=== PATIENT | male | born 1975 | race Caucasian/White ===

== ENCOUNTER 2018-05-31 13:27 | Emergency (ER) | payer SELFPAY ==
[2018-05-31 13:27] VITALS: BP 136/76; PULSE 77; RESP 16; TEMP 36.6; O2SAT 98; BMI 21.7
--- NOTE | 2018-05-31 13:58 | ED.DCSUM_ITS ---
- ER Visit Summary Date of Service: 05/31/18 Chief Complaint: [Dental pain] History of Present Illness: The patient is a 43 M [presents the emergency department complaint dental pain that started for 5 days ago. Patient states he has a broken tooth that broke couple weeks ago. Patient denies any fever. Patient has an appointment to see a dentist in 4 days which is his day off.] Physical Examination: [HEENT-PERRLA, EOMI. Cranial nerves II through XII grossly intact. TMs clear. Mucous membranes moist. No adenopathy. Dental exam-patient has a broken tooth that is worn down to the gumline left lower premolar that is tender to palpation. No evidence of abscess. No facial cellulitis. Cardiovascular-regular rate and rhythm without murmur or ectopy Lungs-clear to auscultation, chest wall stable without crepitus or subcu emphysema Abdomen-normoactive bowel sounds, soft, nontender, no rebound or rigidity, no peritoneal signs. Extremities-intact ?4, normal range of motion, normal pulses, atraumatic] Test Results: [None indicated Emergency Department Course and Treatment: [I did perform an oars report and patient only has 4 prescriptions for narcotic pain medication in the last year.] Treatment Plan: [Patient will be started on clindamycin and [place] for pain] Disposition: [Discharged home in stable condition] Impression: [Dental pain/dental caries] This note was generated with [facility] dictation software. It may contain incorrect words, spelling, and punctuation that were not noted in review of the chart prior to signing ED Disposition - Plan for ED Patient: Chief Complaint: Dental Referrals: Gail Briones NP-C [Primary Care Provider] -
--- NOTE | 2018-05-31 13:58 | ED.DEP ---
ED Disposition - Plan for ED Patient: Chief Complaint: Dental Instructions: ED Tooth Pain Prescriptions: Hydrocodone/Acetaminophen [[place] 5-325 Tablet] 1 ea PO 4X/DAY PRN PRN 5 Days #20 tab PRN Reason: Pain Clindamycin HCl [Cleocin] 300 mg PO Q6H #40 cap Referrals: Gail Briones EDUCATIONAL PROGRAMMING DIRECTOR-C [Primary Care Provider] - Additional Instructions: see your dentist
--- NOTE | 2018-05-31 13:59 | DCINST.ED_ITS ---
ED Disposition - Plan for ED Patient: Chief Complaint: Dental Instructions: ED Tooth Pain Prescriptions: Hydrocodone/Acetaminophen [[place] 5-325 Tablet] 1 ea PO 4X/DAY PRN PRN 5 Days # 20 tab PRN Reason: Pain Clindamycin HCl [Cleocin] 300 mg PO Q6H #40 cap Referrals: Gail Briones SPECIAL INVESTIGATOR-C [Primary Care Provider] - Additional Instructions: see your dentist
== END 2018-05-31 14:21 | disposition home or self-care (01) ==
PROVIDERS: Emergency Provider Emergency Medicine; Family Provider Nurse Practitioner Primary Care; PCP Nurse Practitioner Primary Care
DX: K08.89 Other specified disorders of teeth and supporting structures (principal); K02.9 Dental caries, unspecified; Z72.0 Tobacco use
CPT/HCPCS: 99282

== ENCOUNTER 2018-06-01 10:49 | Emergency (ER) | payer SELFPAY ==
[2018-06-01 10:49] VITALS: BP 137/92; PULSE 85; RESP 14; TEMP 36.4; BMI 20.5
--- NOTE | 2018-06-01 11:17 | ED.VISSUMM ---
- ER Visit Summary Date of Service: 06/01/18 Chief Complaint: Dental pain History of Present Illness: The patient is a 43 M who was seen yesterday he developed more swelling in his left lower jaw region. He got started on clindamycin yesterday. No other symptoms. Physical Examination: He has slight swelling of his left lower jar region, no periapical abscess that is indurated or fluctuant or drainable. Emergency Department Course and Treatment: He was reassured and he will be given a note for work today per his request otherwise he will be discharged in stable condition. Discharge stable condition Impression: [Odontalgia] This note was generated with [employer] dictation software. It may contain incorrect words, spelling, and punctuation that were not noted in review of the chart prior to signing ED Disposition - Plan for ED Patient: Chief Complaint: Dental Referrals: Gail Briones, STEMHOLE BORER AND TOPPER-C [Primary Care Provider] -
[2018-06-01] MEDS: HYDROcodone Bitartrate/Apap 5/325 Tablet PO (11:23)
--- NOTE | 2018-06-01 11:23 | ED.DEP ---
ED Disposition - Plan for ED Patient: Disposition: Home or Assisted Living Chief Complaint: Dental Instructions: ED Cavity Dental Referrals: Gail Briones NP-C [Primary Care Provider] - 3-5 Days
== END 2018-06-01 11:30 | disposition home or self-care (01) ==
PROVIDERS: Emergency Provider Emergency Medicine; Family Provider Nurse Practitioner Primary Care; PCP Nurse Practitioner Primary Care
DX: K08.89 Other specified disorders of teeth and supporting structures (principal); Z72.0 Tobacco use
CPT/HCPCS: 99282

== ENCOUNTER 2018-08-24 14:01 | Emergency (ER) | payer SELFPAY ==
[2018-08-24 14:02] VITALS: BP 154/92; PULSE 84; RESP 18; TEMP 37.1; O2SAT 99; BMI 22.0
--- NOTE | 2018-08-24 14:52 | RAD_ITS ---
STUDY: X-RAY CHEST REASON FOR EXAM: Male, 43 years old. Dyspnea. Productive cough. TECHNIQUE: PA and lateral views of the chest. COMPARISON: Comparison is made with prior study dated July 18, 2013. FINDINGS: EKG electrodes are seen. Hyperinflation. The lungs are clear. There is no demonstrated pleural abnormality. Normal size heart. Normal mediastinum and francis. Normal visualized pulmonary arteries. Normal visualized aortic arch and descending thoracic aorta. Normal visualized thoracic spine. Normal visualized ribs, clavicles, and shoulders. There is no demonstrated abnormality of the visualized soft tissue structures of the upper abdomen. RAD/Chest PA and Lateral IMPRESSION: Hyperinflation. Electronically Signed: Luke Manzano MD at 15:12 EDT Tel [phone], Service support ,
--- NOTE | 2018-08-24 14:52 | EKG12_ITS ---
Test Reason : CP Blood Pressure : / mmHG Vent. Rate : 082 BPM Atrial Rate : 082 BPM P-R Int : 142 ms QRS Dur : 084 ms QT Int : 362 ms P-R-T Axes : 063 040 047 degrees QTc Int : 422 ms Normal sinus rhythm Voltage criteria for left ventricular hypertrophy Abnormal ECG Confirmed by CANDI ISRAEL ([id number]), news videotape editor GARETT LUTZ ([id number]) on 08/28/2018 8:30:03 AM Referred By: NIDHI/CARMINA Confirmed By:CANDI ISRAEL
[2018-08-24 15:01] VITALS: O2SAT 98
--- NOTE | 2018-08-24 15:48 | ED.VISSUMM ---
- ER Visit Summary Date of Service: 08/24/18 Chief Complaint: Shortness of breath and left axilla pain History of Present Illness: The patient is a 43 M who presents from work because of acute onset of left axilla pain with a pleuritic component. He states he has had pain similar but not as severe in the past. He never sought medical attention. He does report a productive cough of green colored sputum for the past 1 week. He denies fever, chills night sweats. He denies weight gain or weight loss. He does report mild nasal congestion/rhinorrhea. Otherwise HEENT review of systems is negative. He denies chest pain of any type. He does report increased shortness of breath over the past week with a productive cough and does report dyspnea exertion. He states the pain was severe at onset and he became lightheaded, his vision became tunneled and black and coworkers stated he appeared pale and he felt as if he was going to pass out. He denies leg pain, swelling discoloration. He denies history of PE or DVT. He is a smoker. Review of systems otherwise negative and please read written note Physical Examination: Vital signs are noted. HEENT exam is remarkable for mild nasal congestion otherwise normal. Heart is regular without murmur, gallop or rub. He is in no respirator distress. Wheezing is noted bilaterally with diminished breath sounds and increased x-ray phase. Abdomen is soft nontender. There is no paraspinal megaly. There is no asymmetry, swelling, discoloration, leg vein distention, palpable cords or tenderness along the distribution of the deep venous system. Neuro exam is nonfocal. Please read written note for complete detail Test Results: EKG was obtained per nurse protocol and reveals a sinus rhythm rate of 82 with LVH by voltage criteria. AR interval, Q adventism and axis are normal. There is no evidence of any ischemic changes. Two-view chest x-ray interpreted by me as hyper aeration with flattened diaphragms. Cardiac silhouette normal. Ms. Emeterio abnormal. Osseous structures are normal. Emergency Department Course and Treatment: Patient's presentation is not consistent with cardiac etiology. A d-dimer was not obtained since he is PERC negative. He was reassessed after 6 puffs of metered-dose inhaler. He is now wheeze free. Treatment Plan: Prescription for antibiotic dispense inhaler and use every 2-4 hours while awake for the next several days. Disposition: Discharged home in stable improved condition Impression: 1. Purulent bronchitis 2. Bronchospasm secondary #1 3. Tobacco use This note was generated with [employer] dictation software. It may contain incorrect words, spelling, and punctuation that were not noted in review of the chart prior to signing ED Disposition - Plan for ED Patient: Disposition: Home or Assisted Living Chief Complaint: Shortness of Breath Instructions: ED Bronchitis Asthmatic Prescriptions: Doxycycline Monohydrate 100 mg PO BID #14 cap Referrals: Gail Briones, POLICE INSPECTOR-C [Primary Care Provider] - 3-5 Days if not improving Additional Instructions: 2 puffs of inhaler every 2-4 hours while awake for the next 2 days then every 4-6 hours as needed for wheezing and/or shortness of breath.
--- NOTE | 2018-08-24 15:53 | ED.DCSUM_ITS ---
- ER Visit Summary Date of Service: 08/24/18 Chief Complaint: Shortness of breath and left axilla pain History of Present Illness: The patient is a 43 M who presents from work because of acute onset of left axilla pain with a pleuritic component. He states he has had pain similar but not as severe in the past. He never sought medical attention. He does report a productive cough of green colored sputum for the past 1 week. He denies fever, chills night sweats. He denies weight gain or weight loss. He does report mild nasal congestion/rhinorrhea. Otherwise HEENT review of systems is negative. He denies chest pain of any type. He does report increased shortness of breath over the past week with a productive cough and does report dyspnea exertion. He states the pain was severe at onset and he became lightheaded, his vision became tunneled and black and coworkers stated he appeared pale and he felt as if he was going to pass out. He denies leg pain, swelling discoloration. He denies history of PE or DVT. He is a smoker. Review of systems otherwise negative and please read written note Physical Examination: Vital signs are noted. HEENT exam is remarkable for mild nasal congestion otherwise normal. Heart is regular without murmur, gallop or rub. He is in no respirator distress. Wheezing is noted bilaterally with diminished breath sounds and increased x-ray phase. Abdomen is soft nontender. There is no paraspinal megaly. There is no asymmetry, swelling, discoloration, leg vein distention, palpable cords or tenderness along the distribution of the deep venous system. Neuro exam is nonfocal. Please read written note for complete detail Test Results: EKG was obtained per nurse protocol and reveals a sinus rhythm rate of 82 with LVH by voltage criteria. HI interval, Q amish and axis are normal. There is no evidence of any ischemic changes. Two-view chest x-ray interpreted by me as hyper aeration with flattened diaphragms. Cardiac silhouette normal. Ms. Emeterio abnormal. Osseous structures are normal. Emergency Department Course and Treatment: Patient's presentation is not consistent with cardiac etiology. A d-dimer was not obtained since he is PERC negative. He was reassessed after 6 puffs of metered-dose inhaler. He is now wheeze free. Treatment Plan: Prescription for antibiotic dispense inhaler and use every 2-4 hours while awake for the next several days. Disposition: Discharged home in stable improved condition Impression: 1. Purulent bronchitis 2. Bronchospasm secondary #1 3. Tobacco use This note was generated with [employer] dictation software. It may contain incorrect words, spelling, and punctuation that were not noted in review of the chart prior to signing ED Disposition - Plan for ED Patient: Disposition: Home or Assisted Living Chief Complaint: Shortness of Breath Instructions: ED Bronchitis Asthmatic Prescriptions: Doxycycline Monohydrate 100 mg PO BID #14 cap Referrals: Gail Briones, EBAY RESELLER-C [Primary Care Provider] - 3-5 Days if not improving Additional Instructions: 2 puffs of inhaler every 2-4 hours while awake for the next 2 days then every 4- 6 hours as needed for wheezing and/or shortness of breath.
[2018-08-24 16:11] VITALS: BP 123/78; PULSE 69; RESP 16; O2SAT 97
--- NOTE | 2018-08-24 16:11 | ED.RN ---
IV DC'ED, CATHETER INTACT, SMALL GAUZE DRESSING PLACED. DISCHARGE INSTRUCTIONS GIVEN TO AND REVIEWED WITH PATIENT, PATIENT DENIES QUESTIONS OR CONCERNS AND VOICES UNDERSTANDING OF DISCHARGE INSTRUCTIONS. PT AMBULATES OUT OF ROOM WITHOUT DIFFICULTY.
--- NOTE | 2018-08-27 11:14 | CM.ED ---
ED CALLBACK: Follow-up call placed to patient. Patient states he started taking his antibiotic, but stopped because he was having vomiting as a side effect. Patient states that he plans to contact his PCP's office for a substitute antibiotic. He states that his symptoms are about the same as the day he presented to the ED. Encouraged patient to contact PCP and importance of antibiotic. Patient states understanding and agreement with plan. Patient declines assistance and denies further questions.
== END 2018-08-24 16:12 | disposition home or self-care (01) ==
PROVIDERS: Emergency Provider Emergency Medicine; Family Provider Nurse Practitioner Primary Care; PCP Nurse Practitioner Primary Care
DX: J40 Bronchitis, not specified as acute or chronic (principal); Z72.0 Tobacco use
CPT/HCPCS: 71046; 93005; 99284; A4216

== ENCOUNTER 2019-11-02 13:49 | Emergency (ER) | payer SELFPAY ==
[2019-11-02 13:50] VITALS: BP 137/84; PULSE 70; RESP 17; TEMP 36.8; O2SAT 100; BMI 19.0
--- NOTE | 2019-11-02 14:14 | CT_ITS ---
STUDY: CT BRAIN WITHOUT CONTRAST REASON FOR EXAM: Male, 44 years old. HEADACHE X 4 DAYS. NO INJURY RADIATION DOSAGE (If Supplied By Facility): CTDIvol = ( 44.99 ) mGy, DLP = ( 745.49 ) mGycm TECHNIQUE: Transaxial CT imaging of the brain was performed without administration of intravenous contrast material. Individualized dose optimization techniques were used for this CT. COMPARISON: No relevant priors. FINDINGS: Normal soft tissue structures. Normal calvarium. Normal size ventricles and extra-axial spaces for the patient''s age. Normal white matter tracts of the cerebral hemispheres. Normal basal ganglia and thalami. Normal brainstem. Normal cerebellum. There is no intracranial hemorrhage. There are no findings of an acute ischemic infarction. Normal visualized paranasal sinuses. CT/Brain/Head without Contrast IMPRESSION: Normal unenhanced CT scan of the brain. Electronically Signed: Agustín Acosta MD ([place]) at 14:45 EST , Service support ,
[2019-11-02] MEDS: 0.9% Normal Saline 1,000 ML 999 ML IV (14:23)
[2019-11-02] MEDS: DiphenhydrAMINE 50 MG/ML Syringe 25 MG IV (14:23)
[2019-11-02] MEDS: Ketorolac 30 MG/ML Syringe IV (14:24)
[2019-11-02] MEDS: Metoclopramide 10 MG/2 ML Vial IV (14:26)
--- NOTE | 2019-11-02 15:13 | ED.VISSUMM ---
- ER Visit Summary Date of Service: 11/02/19 Chief Complaint: Headache History of Present Illness: The patient is a 44 M who presents with a headache. It started 5 days ago. He describes throbbing in the back and sides of his head. Nothing really makes it better or worse. He states he has had some intermittent nausea. No falls or trauma. He has no history of migraine headaches. He tried Tylenol and Aleve which were working but now they are not working. He denies fevers. Physical Examination: Vital signs reviewed. HEENT exam unremarkable. There is no meningismus. Heart is regular rate and rhythm without murmurs. Lungs are clear to auscultation. Abdomen is soft and nontender. Extremities reveal no edema. Skin exam normal. Neurologic exam normal. Test Results: CAT scan of the head is normal Emergency Department Course and Treatment: Patient was given Reglan Benadryl Toradol. He states that he is feeling much better. I see no acute emergent causes for this patient's headache. Patient will be discharged to take medications at home for headaches. He is going to call his doctor for follow-up Treatment Plan: [] Disposition: Discharge Impression: Headache This note was generated with [employer] dictation software. It may contain incorrect words, spelling, and punctuation that were not noted in review of the chart prior to signing ED Disposition - Plan for ED Patient: Referrals: Care Physician,No Primary [Primary Care Provider] -
--- NOTE | 2019-11-02 15:15 | ED.DEP ---
ED Disposition - Plan for ED Patient: Disposition: Home or Assisted Living Instructions: HEADACHE, Unspecified Referrals: Care Physician,No Primary [Primary Care Provider] - Elisa Howe MD [STAFF PHYSICIAN] -
[2019-11-02 15:37] VITALS: BP 118/71; PULSE 62; RESP 16; O2SAT 100
== END 2019-11-02 15:37 | disposition home or self-care (01) ==
PROVIDERS: Emergency Provider Emergency Medicine
DX: R51 Headache (principal); R11.0 Nausea; Z72.0 Tobacco use
CPT/HCPCS: 70450; 96361; 96374; 96375; 99283; J7030; A4216

== ENCOUNTER 2020-04-24 09:10 | Emergency (ER) | payer MEDICAID, SELFPAY ==
[2020-04-24 09:12] VITALS: BP 130/98; PULSE 72; RESP 15; TEMP 36.6; O2SAT 98; BMI 22.3
--- NOTE | 2020-04-24 09:39 | CT_ITS ---
STUDY: CT ABDOMEN AND PELVIS WITHOUT CONTRAST REASON FOR EXAM: Male, 45 years old. LOWER ABD PAIN, DIARRHEA, ACHES, NAUSEA X 3 WEEKS RADIATION DOSAGE (If Supplied By Facility): CTDIvol = ( 10.27 ) mGy, DLP = ( 325.92 ) mGycm TECHNIQUE: Transaxial images were obtained from the dome of the diaphragm to the symphysis pubis without oral contrast, and without intravenous contrast. Sagittal and coronal images were reconstructed. Individualized dose optimization techniques were used for this CT. COMPARISON: 02/03/2016 FINDINGS: The visualized lung bases are unremarkable. The visualized portions of the heart are within normal limits. Liver is unremarkable aside from a 7 mm cyst in the right lobe and a likely hemangioma in the left lobe measuring 2.5 cm. Normal gallbladder and extrahepatic biliary system. Normal spleen. Normal pancreas. Normal bilateral adrenal glands. Normal right kidney. Normal left kidney. There is a small hiatal hernia. Normal small intestine. There is diffuse submucosal thickening in the descending and sigmoid colon consistent with a nonspecific colitis. This is likely infectious or inflammatory. There is no significant pericolonic inflammatory stranding, evidence of abscess or perforation. The appendix is visualized and appears normal. Appendix best seen on coronal recon images 51-56. Normal abdominal aorta. Normal inferior vena cava. Normal retroperitoneum. Normal urinary bladder. Normal abdominal wall. Normal osseous structures. CT/Abdomen/Pelvis W IV Cont ONLY IMPRESSION: Diffuse submucosal thickening of the descending and sigmoid colon suggestive of colitis. No perforation or abscess. This is likely infectious or inflammatory. 7 mm cyst in the right hepatic lobe, 2.5 cm hemangioma in the left hepatic lobe, no specific follow-up is needed. Small hiatal hernia Normal appendix visualized Electronically Signed: Renato Miles MD at 11:15 EDT , Service support ,
--- NOTE | 2020-04-24 09:40 | ED.VIS.GI ---
History of Present Illness Chief Complaint: Diarrhea Informant: Patient - Abdominal Pain/Flank Pain Onset: Weeks Context: Gradual Onset Timing: Intermittent Quality: Aching Location: Diffuse Current Severity: Mild Maximum Severity: Moderate - Nausea/Vomiting/Emesis GI Symptom: Nausea. Negative for: Vomiting Onset: Weeks - Diarrhea/Melena/Hematochezia GI Symptom: Diarrhea Onset: Weeks Stool Quality: Loose, - - thin Severity: Mild Associated Symptoms: Dysuria Narrative: Patient is a 45-year-old male with history of tobacco use but no other known medical history presenting with 3 weeks of abdominal pain, diarrhea and generalized malaise. He states every morning he has been having an episode of diarrhea. He states it is thin. He denies any black or blood in his stool. He states he also wakes up with severe nausea but does not vomit. As the day progresses his symptoms improved. He also has a generalized feeling of malaise. He states 1 to 2 days a week he wakes up drenched in sweats. He is not sure if he is had any weight loss because he does not have a scale at home. He states he also has spells of lightheadedness and feeling like he might pass out every morning when he starting to get up and move around. He has had some mild dysuria but denies any other urinary symptoms. He denies any contact with anyone with similar symptoms. He denies any other complaints at this time. He states he came in because he just wanted to make sure there is nothing bigger going on that need to be addressed. Prior similar symptoms: No Recent Illness/Hospitalization: No Past Medical History - Allergies and Home Meds Allergies/Adverse Reactions: Allergies Penicillins [PCN] Allergy (Verified 11/02/19 13:50) Unknown Primary Care Physician: Jude Saini MD [STAFF PHYSICIAN] - Christophe Hunter MD [NON-STAFF] - Past Medical History: None Surgical History: no surgical history Lives: Alone Smoking Status: Current every day smoker Review of Systems General: Reports: Malaise, Sweats, - - Lightheaded. Denies: Chills, Fever Eyes: Denies: Visual changes - bilaterally, Diplopia ENT: Denies: Rhinorrhea, Sore throat Cardiovascular: Denies: Chest pain, Palpitations Respiratory: Denies: Dyspnea, Cough, Dyspnea on exertion Gastrointestinal: Reports: Abdominal pain, Nausea, Diarrhea. Denies: Vomiting, Melena, Hematochezia Genitourinary: Denies: Dysuria, Hematuria, Frequency Musculoskeletal: Denies: Back pain, Extremity Pain Skin: Denies: Rash, Wounds Neurological: Denies: Headache, Weakness, Numbness Physical Exam Vital Signs/Narrative: Vital Signs Temp Pulse Resp BP Pulse Ox 04/24/20 09:12 97.8 F 72 15 130/98 H 98 Inital Vital Signs reviewed: Yes General: Well nourished, Well developed, No Acute Distress Head: Normocephalic, Atraumatic Eyes: Perrl, EOMI ENT: Moist mucous membranes, No rhinorrhea Neck: Supple, Nontender Cardiovascular: Regular rate, Regular rhythm, No murmurs Respiratory: No distress, CTA bilaterally, Chest nontender Abdomen: Soft, Nondistended, Normal bowel sounds, Tender - Lower abdomen, diffusely, - - No pinpoint pain at McBurney's point. Negative for: Guarding, Rebound tenderness Back: Nontender, Normal Inspection Extremities: Nontender, No edema Skin: Normal color, No rash Neurological: Alert, Oriented x3, Cranial nerves II-XII grossly intact, Normal Strength, Normal Sensation Psychological: Normal affect, Normal Mood Diagnostic/Tx/Re-eval Clinical Impression(s) from Imaging Studies Abdomen/Pelvis CT 04/24/20 09:39 IMPRESSION: Diffuse submucosal thickening of the descending and sigmoid colon suggestive of colitis. No perforation or abscess. This is likely infectious or inflammatory. 7 mm cyst in the right hepatic lobe, 2.5 cm hemangioma in the left hepatic lobe, no specific follow-up is needed. Small hiatal hernia Normal appendix visualized Electronically Signed: Renato Miles MD at 11:15 EDT , Service support , Chest X-Ray 04/24/20 10:44 IMPRESSION: Normal x-ray examination of the chest. Electronically Signed: Renato Miles MD at 10:58 EDT , Service support , Laboratory Data 04/24/20 04/24/20 04/24/20 10:00 10:00 10:00 WBC 8.2 RBC 4.70 Hgb 15.2 Hct 46.1 MCV 98.1 H MCH 32.3 H MCHC 33.0 RDW Std Deviation 47.8 H RDW Coeff of Alexus 13.2 Plt Count 282 MPV 9.1 Immature Gran % (Auto) 0.200 Neut % (Auto) 62.0 Lymph % (Auto) 26.7 [place] % (Auto) 7.0 Eos % (Auto) 3.5 Baso % (Auto) 0.6 Absolute Neuts (auto) 5.1 Absolute Lymphs (auto) 2.18 Nucleated RBC % 0 Sodium 142 Potassium 4.2 Chloride 109 H Carbon Dioxide 30.0 Anion Gap 3 L BUN 8 Creatinine 0.85 Estim Creat Clear Calc 95.53 Est GFR (MDRD) Af Amer 126 Est GFR (MDRD) Non-Af 104 BUN/Creatinine Ratio 9.4 L Glucose 90 Calcium 8.8 Total Bilirubin 0.40 AST 17 ALT 24 Alkaline Phosphatase 52 Total Protein 6.8 Albumin 3.5 Globulin 3.3 Albumin/Globulin Ratio 1.1 Lipase 209 TSH 2.11 Urine Color Urine Clarity Urine pH Ur Specific [place] Urine Protein Urine Glucose (UA) Urine Ketones Urine Occult Blood Urine Nitrite Urine Bilirubin Urine Urobilinogen Ur Leukocyte Esterase Urine RBC Urine WBC Ur Squamous Epith Cells Amorphous Sediment Urine Bacteria Urine Mucus Monoscreen Negative 04/24/20 10:00 WBC RBC Hgb Hct MCV MCH MCHC RDW Std Deviation RDW Coeff of Alexus Plt Count MPV Immature Gran % (Auto) Neut % (Auto) Lymph % (Auto) [place] % (Auto) Eos % (Auto) Baso % (Auto) Absolute Neuts (auto) Absolute Lymphs (auto) Nucleated RBC % Sodium Potassium Chloride Carbon Dioxide Anion Gap BUN Creatinine Estim Creat Clear Calc Est GFR (MDRD) Af Amer Est GFR (MDRD) Non-Af BUN/Creatinine Ratio Glucose Calcium Total Bilirubin AST ALT Alkaline Phosphatase Total Protein Albumin Globulin Albumin/Globulin Ratio Lipase TSH Urine Color Yellow Urine Clarity Clear Urine pH 6.5 Ur Specific [place] 1.015 Urine Protein 15 H Urine Glucose (UA) Normal Urine Ketones Negative Urine Occult Blood 50 H Urine Nitrite Negative Urine Bilirubin 1 H Urine Urobilinogen 1 H Ur Leukocyte Esterase Negative Urine RBC 0-5 SEEN Urine WBC 0 SEEN Ur Squamous Epith Cells 0 SEEN Amorphous Sediment 1+ Urine Bacteria 1+ Urine Mucus 1+ Monoscreen - Medical Decision Making Patient is evaluated for 3 weeks of diarrhea, lower abdominal pain and nausea. He denies ever having any like this before. Denies associated fever does report night sweats. Physical exam is significant only for some very mild lower abdominal tenderness. No peritoneal signs. He is otherwise well-appearing. His vital signs are normal. Lab work including CBC and belly labs is unremarkable. Urinalysis does show some findings consistent with some inflammation. X-ray of the chest does not show any acute process. CT of the abdomen and pelvis does show diffuse submucosal thickening of the descending and sigmoid colon consistent with colitis. No signs of perforation or abscess. This does match patient's clinical picture. Patient was started on broad-spectrum antibiotics, Cipro and Flagyl. He is given first dose in the emergency room. He denies any family history of Crohn's disease or ulcerative colitis. Patient is also older than I would expect to be a new presentation of inflammatory bowel disease. He is given surgery for follow-up. Patient is counseled on the importance of follow-up. He is referred to primary care doctor as he does not have one either. Patient is counseled on signs and symptoms requiring return to the emergency room. Patient verbalizes agreement and understand this plan. Patient discharged home in stable and improved condition. ED Disposition - Plan for ED Patient: Disposition: Home or Assisted Living Diagnosis: Colitis, Diarrhea Instructions: ED Diarrhea Bacterial Prescriptions: Ciprofloxacin [Cipro] 500 mg PO BID #14 tab Prescription Printed metroNIDAZOLE [Flagyl] 500 mg PO Q8H #21 tab Prescription Printed Ondansetron [Zofran Odt] 4 mg PO Q8H PRN PRN #10 tab PRN Reason: Nausea Prescription Printed Referrals: Jude Saini MD [STAFF PHYSICIAN] - Christophe Hunter MD [NON-STAFF] - Additional Instructions: You were started on antibiotics to treat likely infection of your colon which is causing her symptoms. Please follow-up with surgery, Dr. Saini, in 1 week for further evaluation recommendations. Please return the emergency room if you have any worsening symptoms. You have also been given referral to Dr. Hunter, primary care.
[2020-04-24 09:50] VITALS: BP 130/98; PULSE 72; RESP 15; TEMP 36.6; O2SAT 98
[2020-04-24] MEDS: 0.9% Normal Saline 1,000 ML 1000 ML IV (09:57)
[2020-04-24 10:07] LABS: Squamous Epithelial Cells - UA 0 SEEN /hpf (0-5); White Blood Cells 0 SEEN /hpf (0-5)
[2020-04-24 10:09] LABS: Color, Urine Yellow (Yellow); Glucose, Dipstick Normal (Normal); Ketone-Dipstick Negative (Negative); Leukocyte Esterase-Dipstick Negative /ul (Negative); Nitrite-Dipstick Negative (Negative); Occult Blood-Urine 50 /ul (Negative); Protein-Dipstick 15 mg/dl (Negative); Specific Gravity, Urine 1.015 (1.002-1.030); Urine Clarity Clear (Clear); Urine Urobilinogen 1 mg/dl (Normal); Urine pH 6.5 (5.0 - 8.0)
[2020-04-24 10:10] LABS: Absolute Lymphocyte Count 2.18 X10^3/uL (0.83-4.51); Absolute Neutrophil Count 5.1 X10^3/uL (2.0-7.7); Basophil# 0.05 X10^3/uL; Basophil% 0.6 % (0-1); Eosinophil# 0.29 X10^3/uL; Eosinophils% 3.5 % (0-5); Hematocrit 46.1 % (40-54); Hemoglobin 15.2 g/dL (13.0-16.5); Lymphocyte # 2.18 X10^3/ul (4.0); Lymphocyte % 26.7 % (19-41); Mean Corpuscular Hgb 32.3 pg (27.0-32.0); Mean Corpuscular Volume 98.1 fL (80-94); Mean Platelet Vol. 9.1 fl (6.2-12.0); Monocyte# 0.57 X10^3/uL; NRBC Flagged by Analyzer 0 % (0-5); Neutrophil # 5.07 X10^3/uL (2.7-7.7); Platelet Count 282 K/mm3 (150-450); RBC Distribution Width CV 13.2 % (11.6-14.6); RBC Distribution Width SD 47.8 fl (35.1-43.9); White Blood Count 8.2 K/mm3 (4.4-11.0)
[2020-04-24 10:12] LABS: Urine Bilirubin Dipstick 1 mg/dL (Negative)
[2020-04-24 10:16] LABS: Amorphous Sediment 1+; Bacteria 1+ /hpf (None Seen); Mucous, Urine 1+ /hpf (<or=2+); Red Blood Cells-Urine 0-5 SEEN /hpf (0-5)
[2020-04-24 10:29] LABS: Internal QC Validated? YES +Cl - CLEAR BKGD; Monotest Negative (Negative)
[2020-04-24 10:32] LABS: ALB/GLOB Ratio 1.1 RATIO (0.9-2.4); AST(SGOT) 17 U/L (15-37); Alanine Aminotransfer ALT/SGPT 24 U/L (16-61); Albumin, Serum 3.5 g/dL (3.2-5.0); Alkaline Phosphatase 52 U/L (45-117); Anion Gap 3 (5-15); BUN 8 mg/dL (7-18); BUN/Creat Ratio 9.4 RATIO (10-20); Calcium,Total 8.8 mg/dL (8.5-10.1); Chloride 109 mmol/L (98-107); Creatinine, Serum 0.85 mg/dL (0.70-1.30); EST Glomerular Filtration Rate 104 mL/min (>60); Est Glom Filt Rate - Afr Amer 126 mL/min (>60); Estimated Creatinine Clearance 95.53 ml/min; Globulin 3.3 g/dL (2.2-4.2); Glucose 90 mg/dL (74-106); Lipase 209 U/L (73-393); Potassium 4.2 mmol/L (3.5-5.1); Protein, Total 6.8 g/dL (6.4-8.2); Sodium Level 142 mmol/L (136-145); Thyroid Stim Hormone (TSH) 2.11 uIU/mL (0.358-3.74)
[2020-04-24 10:36] VITALS: BP 127/75; PULSE 73; RESP 16; TEMP 36.6; O2SAT 98
--- NOTE | 2020-04-24 10:44 | RAD_ITS ---
STUDY: X-RAY CHEST REASON FOR EXAM: Male, 45 years old. DIARRHEA X 3 WEEKS TECHNIQUE: Single AP portable view of the chest. COMPARISON: 08/24/2018 FINDINGS: The lungs are clear and expanded. There is no demonstrated pleural abnormality. Normal size heart. Normal mediastinum and francis. Normal visualized pulmonary arteries. Normal visualized aortic arch and descending thoracic aorta. Normal visualized thoracic spine. Normal visualized ribs, clavicles, and shoulders. There is no demonstrated abnormality of the visualized soft tissue structures of the upper abdomen. RAD/Chest 1 View (Portable) IMPRESSION: Normal x-ray examination of the chest. Electronically Signed: Renato Miles MD at 10:58 EDT , Service support ,
[2020-04-24 11:09] VITALS: BP 127/75; PULSE 73; RESP 16; TEMP 36.6; O2SAT 98
[2020-04-24 11:34] VITALS: BP 124/78; PULSE 59; RESP 16; O2SAT 99
[2020-04-24] MEDS: Ciprofloxacin 250 MG Tablet 500 MG PO (12:45)
[2020-04-24] MEDS: metroNIDAZOLE 500 MG Tablet PO (12:45)
[2020-04-24 12:46] VITALS: BP 120/76; PULSE 61; RESP 16; TEMP 36.6; O2SAT 98
== END 2020-04-24 12:53 | disposition home or self-care (01) ==
PROVIDERS: Emergency Provider Emergency Medicine
DX: K52.9 Noninfective gastroenteritis and colitis, unspecified (principal); K44.9 Diaphragmatic hernia without obstruction or gangrene; K76.89 Other specified diseases of liver; F17.200 Nicotine dependence, unspecified, uncomplicated; Z88.0 Allergy status to penicillin
CPT/HCPCS: 71045; 74177; 80053; 81001; 83690; 84443; 85025; 86308; 96360; 99284; J7030; Q9967

== ENCOUNTER 2020-05-06 11:57 | Day surgery (SDC) | payer MEDICAID, SELFPAY ==
[2020-05-05 14:17] VITALS: BMI 22.3
[2020-05-06] VITALS (7 sets, daily range): BP systolic 108–123; BP diastolic 69–88; PULSE 65–93; RESP 16–20; TEMP 36.4–37.2; O2SAT 92–98; BMI 21.2
[2020-05-06] MEDS: Lactated Ringers 1,000 ML 100 ML IV (12:29)
--- NOTE | 2020-05-06 12:42 | PCM.HP.BLA ---
History and Physical Date of Admission: 05/06/20 [facility] [address] [place] [address] OFFICE VISIT Date of Service: 05/05/20 MR#: [id number] Acct: [id number] Name: JAYNE SANCHEZ Rep #: [id number] : 1975 Provider: Dr. Jude Saini MD Age/Sex: 45/M Location: [facility] Status: Signed Intake Vital Signs 05/05/20 Height 5 ft 5 in 05/05/20 Weight: 131 lb 05/05/20 BMI 21.8 05/05/20 BP 164/91 H 05/05/20 Blood Pressure Location Rt brachial 05/05/20 Position Sitting 05/05/20 Respiration 18 05/05/20 Pulse 66 05/05/20 Pulse Source Monitor 05/05/20 Temp 98.6 F 05/05/20 Temp Source Temporal 05/05/20 Pulse Oximetry (%) 98 05/05/20 Oxygen Delivery Method room air Intake Visit Reasons: F/U [facility] ER 04/24,COLITIS/ DIARRHEA Chief Complaint: abdominal pain/nausea/diarrhea 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 Is patient in pain?: Yes Allergies Penicillins [PCN] Allergy (Verified 05/05/20 14:30) Unknown Medications ciprofloxacin HCl 500 mg tablet 500 mg PO BID 14 Days #28 tab 05/05/20 [Rx Confirmed 05/05/20] metronidazole 500 mg tablet 500 mg PO TID 14 Days #42 tab 05/05/20 [Rx Confirmed 05/05/20] [facility] Medical History History of drug abuse (Chronic) Tobacco user (Chronic) Abdominal pain (Acute) Acid reflux (Acute) Diarrhea (Acute) History of back problems (Acute) Malaise and fatigue (Acute) Nausea (Acute) Weight loss (Acute) Surgical History No history of previous surgery (Acute) Social History (Updated 05/05/20 @ 16:[address] Jude Saini MD) Smoking Status: Current every day smoker alcohol intake: current alcohol intake frequency: a few times a month substance use type: does not use HPI HPI HPI: JAYNE SANCHEZ, is a 45 M who presents to the office today for HPI HPI Surgical H&P: Yes HPI: JAYNE SANCHEZ, is a 45 M who presents to the office today for Evaluation for endoscopy. Patient was recently at [facility]'s emergency department on 04/24/2020. He presented with 3 weeks of abdominal pain diarrhea and generalized malaise. He states that every morning he was having thin runny diarrhea. He did not notice any blood in his stool usually he wakes up severely nauseated every morning but does not vomit. Several days he would wake up drenched in sweat. He states that he is not sure if he had any weight loss but his pants do fit looser than normal. In addition he was having spells of lightheadedness. He denies any contact with anyone with similar symptoms. He has had no complaints of cough his work-up in the emergency department included a CAT scan. The CT of the abdomen and pelvis showed diffuse some mucosal thickening of the descending and sigmoid colon consistent with colitis. There is no signs of perforation or abscess. He was started on broad-spectrum antibiotics (Cipro and Flagyl). He has had a week of this says his stools are more like baby poop now he is not having any fevers or chills. Patient has no family history of ulcerative colitis Crohn's colitis or any other intestinal problems. ROS General General: Yes weight change and fatigue; no appetite, colon cancer, breast cancer or weakness HEENT HEENT: No difficulty swallowing, eye injury, eye surgery, swollen glands or hoarseness Endo Endocrine: No thyroid disease, diabetes mellitus, thyroid cancer, Hair loss, heat intolerance or cold intolerance Skin Skin: No rash or changing moles Breast Breast: No left breast lump, right breast lump, nipple discharge, breast pain, abnormal mammogram, abnormal US or breast enlargement Musc Musculoskeletal: Yes back problems; no arthritis, rheumatoid arthritis, gout or joint pain Cardio Cardiovascular: Yes murmur; no pacemaker, heart disease, atrial fibrillation, high blood pressure, heart attack, heart stent, palpitations, shortness of breat with exertion or chest pain Psych Psychiatric: No depression, anxiety or hearing voices Resp Respiratory: No shortness of breath, No sleep apnea, No cough, No COPD, No asthma, No emphysema, No wheezing Gastro Gastrointestinal: Yes abdominal pain, Yes nausea or vomiting, Yes diarrhea, No constipation, No blood in stool, Yes acid reflux, No hemorrhoids, No ulcers, No gallbladder problem, Yes black,tarry stools Vern Hematologic: No blood thinners, No blood disorders, No bleeding, No anemia, No blood clots Neuro Neurologic: No system reviewed and no additional complaints, except as docu, No as per HPI, No abnormal walking, No abnormal hearing, No abnormal movements, No abnormal speech, No behavioral changes, No burning sensations, No confusion, No seizure-like activity, No unsteadiness, No dizziness, No localized weakness, No frequent falls, No headache(s), No lack of coordination, No loss of vision, No memory loss, No numbness, No other visual disturbances, No radiating pain, No restless legs, No sensory deficit, No fainting, No tingling, No tremor(s), No weakness, No other Exam Const General: no acute distress, well developed, well hydrated Orientation: oriented to person, oriented to place, oriented to time [facility] Head: normocephalic, atraumatic Ears: external ears normal Mouth: moist mucous membranes Eyes Sclera: sclerae normal Pupils: normal by confrontation Neck Neck: no lymphadenopathy noted Neck mass: No Thyroid: thyroid normal, symmetrical Chest Chest palpation & inspection: normal inspection of the chest Breast Palpation: No nipple discharge Resp Effort & Inspection: normal respiratory effort Auscultation: clear to auscultation bilaterally Percussion: percussion normal Cardio Rate: regular rate Rhythm: regular rhythm Heart Sounds: murmur GI Palpation: soft, no hepatosplenomegaly, no masses, nontender Rectal Exam: other Other: Rectal exam deferred. Extrem General: normal to inspection, no clubbing, cyanosis or edema Assessment & Plan Problems 1. Colitis K52.9 Plan I have discussed the above with the patient. I have offered the patient colonoscopy for evaluation. I have explained the risks/benefits of the procedure and described the procedure. I have discussed the risks with the patient, including but not limited to: infection, bleeding, perforation of the GI tract requiring emergency surgery, inability to complete the procedure, injury to any internal organs, complications of anesthesia, etc. - the patient understands and agrees to proceed. I have answered all the patient's questions to the patient's satisfaction and the patient has no further questions. The patient has been given instructions for the colon cleansing preparation. If his endoscopy is unrevealing. Then we will obtain stool cultures. However if it does show signs of significant inflammation we will probably start him on Asacol. Orders Orders: Colonoscopy Today Dr. Jude Saini MD Medications New: metronidazole 500 mg PO TID 14 days 42 tabs 0RF Ginger Fox PA-C ciprofloxacin HCl 500 mg PO BID 14 days 28 tabs 0RF Ginger Fox PA-C Discontinued: ondansetron Discontinued Reason: Order Completed 4 mg PO Q8H PRN PRN 10 tabs Nausea Coding Level of Care Code Off vis,new,level 4 Diagnoses Colitis K52.9 COVID (Procedure Consent) Procedure Criteria Procedure Criteria: Yes Elective The surgeon/proceduralist and patient have discussed in detail the risk of exposure to and/or potential harm posed by the COVID-19 virus with having a surgery/procedure at this time versus the risk of? delaying the surgery/procedure. It is not possible to know either the risk of delaying the surgery or procedure or chance of getting an infection with perfect accuracy, but a joint decision was made between the patient and the surgeon/proceduralist ?to proceed at this time with the scheduled surgery/procedure as indicated on the consent form. 05/05/20 3708 <Electronically signed by Jude Saini MD> Date Jude Saini MD Cosigner Signature: Date (if applicable) CC: Dr. Elisa Howe MD; Dr. China Chery, DO ~ I have re-examined the patient. There are no clinical changes since date of exam.
--- NOTE | 2020-05-06 13:30 | COLBX_PTH ---
PATIENT: JAYNE SANCHEZ LOC: EN U#:[id number] AGE/SX: 45/M ROOM: RE05/06/[address]: Dr. Jude Saini MD : 1975 BED: DIS: 05/06/2020 SPEC #: [id number] RECD: 05/06/20 15:16 STATUS: LEOPOLDO MORENO #: [id number] SUSHIL: 05/06/20 13:[address]: Jude Saini DEPT: SURGICAL PATHOLOGY RECD BY: Marivel Ribeiro ENTERED: 05/07/20 09:32 SP TYPE: COLON BX QUINTIN DR: Dr. Elisa Howe MD Tissues: A - Transverse colon B - Sigmoid colon biopsy Procedures: Surgery Specimen Level IV HEADER OPERATION: Colonoscopy (MAC) PRE-OP DIAGNOSIS: Colitis TISSUE SUBMITTED: A - Transverse colon polyp biopsy, B - Sigmoid colon biopsy MICROSCOPIC DIAGNOSIS A. Transverse colon polyp, biopsy: Tubular adenoma. B. Sigmoid colon, biopsy: Fragments of colonic mucosa, no pathologic diagnosis. RANDY:clara 05/08/20 MICROSCOPIC DESCRIPTION Slides are reviewed. GROSS DESCRIPTION A - Received in fixative is one container labeled with the patient's name and designated transverse colon polyp biopsy. The specimen consists of two irregular fragments of light guerrero soft tissue that in aggregate measure 0.5 x 0.4 x 0.1 cm. The specimen is totally submitted in one cassette. B - Received in fixative is one container labeled with the patient's name and designated sigmoid colon biopsy. The specimen consists of multiple irregular fragments of light guerrero soft tissue that in aggregate measure 1 x 1 x 0.1 cm. The specimen is totally submitted in one cassette. / RANDY:clara 05/07/20 TC:5 CPT: 60210 x2
--- NOTE | 2020-05-06 13:54 | OP.COLON_ITS ---
Patient Name: Luis Felipe Driver Procedure Date: 05/06/2020 1:22 PM Date of : 1975 Age: 45 Procedure: Colonoscopy Indications: Left-sided chronic ulcerative colitis Providers: Jude Saini MD Medicines: See the Anesthesia note for documentation of the administered medications Patient Profile: This is a 45 year old male. Refer to note in patient chart for documentation of history and physical. Last Colonoscopy: none. The patient's first colonoscopy is today. Complications: No immediate complications. Procedure: Pre-Anesthesia Assessment: - Prior to the procedure, a History and Physical was performed, and patient medications and allergies were reviewed. The patient's tolerance of previous anesthesia was also reviewed. The risks and benefits of the procedure and the sedation options and risks were discussed with the patient. All questions were answered, and informed consent was obtained. Prior Anticoagulants: The patient has taken no previous anticoagulant or antiplatelet agents. ASA Grade Assessment: II - A patient with mild systemic disease. After reviewing the risks and benefits, the patient was deemed in satisfactory condition to undergo the procedure. After I obtained informed consent, the scope was passed under direct vision. Throughout the procedure, the patient's blood pressure, pulse, and oxygen saturations were monitored continuously. The adult colonoscope was introduced through the anus and advanced to the cecum, identified by appendiceal orifice and ileocecal valve. The colonoscopy was performed without difficulty. The patient tolerated the procedure well. The quality of the bowel preparation was good. Scope In: 1:31:49 PM Scope Withdrawal Time 0 hours 11 minutes 24 seconds Scope Out: 1:47:04 PM Total Procedure Duration Time 0 hours 15 minutes 15 seconds Findings: A diffuse area of mildly congested and inflamed mucosa was found in the sigmoid colon. Biopsies were taken with a cold forceps for histology. The findings of the minimum congestion in the sigmoid colon do not look nearly as bad as the CT findings from the last week. I believe this is more likely resolving colitis. A 5 mm polyp was found in the transverse colon. The polyp was sessile. The polyp was removed with a jumbo cold forceps. Resection and retrieval were complete. The exam was otherwise without abnormality. Impression: - Congested and inflamed mucosa in the sigmoid colon. Biopsied. - One 5 mm polyp in the transverse colon, removed with a jumbo cold forceps. Resected and retrieved. - The examination was otherwise normal. Recommendation: - Discharge patient to home. - Resume previous diet. - Continue present medications. - Await pathology results. - Repeat colonoscopy (date not yet determined) for surveillance based on pathology results. - Return to my office in 2 weeks. Procedure Code(s): --- Professional --- 22031, Colonoscopy, flexible; with biopsy, single or multiple Diagnosis Code(s): --- Professional --- K63.89, Other specified diseases of intestine K52.9, Noninfective gastroenteritis and colitis, unspecified D12.3, Benign neoplasm of transverse colon (hepatic flexure or splenic flexure) K51.50, Left sided colitis without complications CPT copyright 2017 [employer]. All rights reserved. The codes documented in this report are preliminary and upon finance analyst review may be revised to meet current compliance requirements. MD Jude Castle MD 05/06/2020 1:53:46 PM This report has been signed electronically. Number of Addenda: 0 Note Initiated On: 05/06/2020 1:22 PM
--- NOTE | 2020-05-06 13:54 | OP.CCLET_ITS ---
05/06/2020 Elisa Howe [address] [place] [address] Re : Colonoscopy procedure for [facility] Dear Dr. Howe This procedure was performed on Wednesday, May 06, 2020. My impressions and recommendations are as follows: Impressions : - Congested and inflamed mucosa in the sigmoid colon. Biopsied. - One 5 mm polyp in the transverse colon, removed with a jumbo cold forceps. Resected and retrieved. - The examination was otherwise normal. Recommendations : - Discharge patient to home. - Resume previous diet. - Continue present medications. - Await pathology results. - Repeat colonoscopy (date not yet determined) for surveillance based on pathology results. - Return to my office in 2 weeks. My findings are described in the full procedure note, which is enclosed. If I can be of further assistance, please feel free to contact me at Doctor phone number(s): , Fax: [phone], Work: . Sincerely, MD Jude Castle MD 05/06/2020 1:53:46 PM This report has been signed electronically.
== END 2020-05-06 14:40 | disposition home or self-care (01) ==
LOC: EN 12:01 → AC 12:02
PROVIDERS: Anesthesiology; PCP Family Medicine; Referring Provider Family Medicine; Visit Provider Surgery
PROC: 0DJD8ZZ Inspection of Lower Intestinal Tract, Via Natural or Artificial Opening Endoscopic (ICD-10-PCS; CPT 45378; principal; 2020-05-06 13:25)
DX: D12.3 Benign neoplasm of transverse colon (principal); K63.89 Other specified diseases of intestine; K52.9 Noninfective gastroenteritis and colitis, unspecified; K51.50 Left sided colitis without complications; F17.200 Nicotine dependence, unspecified, uncomplicated; Z79.899 Other long term (current) drug therapy; Z88.0 Allergy status to penicillin; K21.9 Gastro-esophageal reflux disease without esophagitis; Z11.59 Encounter for screening for other viral diseases
CPT/HCPCS: 45380; 87635; 88305; C9803; G2023; J7120; J1610; J2405; U0003

== ENCOUNTER → 2020-05-13 12:24 | Outpatient (CLI) | payer MEDICAID, SELFPAY ==
[2020-05-06 12:22] VITALS: BMI 21.2
== END ==
PROVIDERS: PCP Family Medicine; Referring Provider Surgery; Visit Provider Surgery
DX: R19.7 Diarrhea, unspecified (principal)
CPT/HCPCS: 83630; 87177; 87209; 87493; 87506

== ENCOUNTER → 2020-05-14 09:47 | Outpatient (CLI) | payer MEDICAID, SELFPAY ==
[2020-05-06 12:22] VITALS: BMI 21.2
[2020-05-20 03:50] LABS: Fats, Neutral Normal (.); Fats, Total Normal (.)
== END ==
PROVIDERS: Surgery; PCP Family Medicine; Referring Provider Family Medicine; Visit Provider Family Medicine
DX: R19.7 Diarrhea, unspecified (principal); R10.9 Unspecified abdominal pain
CPT/HCPCS: 36415; 82274; 82705

== ENCOUNTER → 2020-05-20 12:03 | Outpatient (CLI) | payer MEDICAID, SELFPAY ==
[2020-05-06 12:22] VITALS: BMI 21.2
[2020-05-27 13:16] LABS: 5-HIAA, 24UR 2.6 mg/24 hr (0.0-14.9); 5-HIAA, UR 2.9 mg/L (Undefined)
== END ==
PROVIDERS: PCP Family Medicine; Referring Provider Surgery; Visit Provider Surgery
DX: R19.7 Diarrhea, unspecified (principal); R10.9 Unspecified abdominal pain
CPT/HCPCS: 81050; 83497

== ENCOUNTER 2020-05-26 17:51 | Emergency (ER) | payer MEDICAID, SELFPAY ==
[2020-05-21 13:16] VITALS: BMI 21.2
[2020-05-26 17:52] VITALS: BP 103/70; PULSE 87; RESP 16; TEMP 36.5; O2SAT 97; BMI 21.6
[2020-05-26 18:11] LABS: Absolute Lymphocyte Count 0.61 X10^3/uL (0.83-4.51); Absolute Neutrophil Count 8.8 X10^3/uL (2.0-7.7); Basophil# 0.03 X10^3/uL; Basophil% 0.3 % (0-1); Lymphocyte # 0.61 X10^3/ul (4.0); Lymphocyte % 6.2 % (19-41); Mean Corp Hgb Conc 34.1 g/dL (32-36); Mean Corpuscular Hgb 32.5 pg (27.0-32.0); Mean Corpuscular Volume 95.2 fL (80-94); Mean Platelet Vol. 9.2 fl (6.2-12.0); Monocyte# 0.29 X10^3/uL; NRBC Flagged by Analyzer 0 % (0-5); Neutrophil # 8.81 X10^3/uL (2.7-7.7); Neutrophil % 90.2 % (47-70); Platelet Count 301 K/mm3 (150-450); RBC Distribution Width CV 13.1 % (11.6-14.6); Red Blood Count 4.62 M/mm3 (4.6-6.2); White Blood Count 9.8 K/mm3 (4.4-11.0)
[2020-05-26 18:22] LABS: Anion Gap 5 (5-15); BUN 12 mg/dL (7-18); BUN/Creat Ratio 12.7 RATIO (10-20); Chloride 109 mmol/L (98-107); Creatinine, Serum 0.94 mg/dL (0.70-1.30); EST Glomerular Filtration Rate 92 mL/min (>60); Est Glom Filt Rate - Afr Amer 112 mL/min (>60); Estimated Creatinine Clearance 83.64 ml/min; Glucose 117 mg/dL (74-106); Potassium 4.5 mmol/L (3.5-5.1); Sodium Level 140 mmol/L (136-145)
[2020-05-26 18:53] VITALS: BP 112/71; PULSE 64; RESP 15; O2SAT 98
[2020-05-26] MEDS: Ondansetron 4 MG/2 ML Vial IV (19:40)
[2020-05-26] MEDS: Morphine 4 MG/ML Syringe IV (19:41)
[2020-05-26] MEDS: 0.9% Normal Saline 1,000 ML 1000 ML IV (19:42)
[2020-05-26 20:06] VITALS: BP 113/69; PULSE 57; RESP 16; O2SAT 96
[2020-05-26 20:09] LABS: AST(SGOT) 16 U/L (15-37); Alanine Aminotransfer ALT/SGPT 25 U/L (16-61); Albumin, Serum 3.8 g/dL (3.2-5.0); Alkaline Phosphatase 56 U/L (45-117); Bilirubin, Direct 0.22 mg/dL (0.00-0.30); Globulin 3.6 g/dL (2.2-4.2); Lipase 71 U/L (73-393); Protein, Total 7.4 g/dL (6.4-8.2)
[2020-05-26 21:07] LABS: Bacteria 0 SEEN /hpf (None Seen); Squamous Epithelial Cells - UA 0 SEEN /hpf (0-5)
[2020-05-26 21:09] LABS: Color, Urine Yellow (Yellow); Glucose, Dipstick Normal (Normal); Leukocyte Esterase-Dipstick 25 /ul (Negative); Nitrite-Dipstick Negative (Negative); Occult Blood-Urine 50 /ul (Negative); Protein-Dipstick 15 mg/dl (Negative); Urine Bilirubin Dipstick Negative (Negative); Urine Clarity Clear (Clear); Urine Urobilinogen Normal (Normal)
[2020-05-26 21:16] LABS: Ketone-Dipstick 150 mg/dl (Negative)
[2020-05-26 21:21] LABS: Mucous, Urine 2+ /hpf (<or=2+); Red Blood Cells-Urine 5-10 SEEN /hpf (0-5); White Blood Cells 0-5 SEEN /hpf (0-5)
--- NOTE | 2020-05-26 21:29 | ED.VISSUMM ---
- ER Visit Summary Date of Service: 05/26/20 Chief Complaint: Abdominal pain, nausea, vomiting, and diarrhea History of Present Illness: The patient is a 45 M presents with abdominal pain, nausea, vomiting, and diarrhea that began today. Patient describes his pain is sharp. Patient states the pain is over the epigastric area. Patient states the pain improves when he takes a shower. Patient states nothing makes the pain worse. Patient admits to some nausea and vomiting. Patient denies any hematemesis or coffee-ground emesis. Patient admits to some diarrhea but denies any melena or hematochezia. Patient denies any dysuria or hematuria. Patient states he has been following with Dr. Saini for this. Physical Examination: Vital signs are stable. Patient is afebrile. Patient is in no acute distress. Oral mucosa is pink and moist. Neck is supple. Trachea is midline. There is no JVD. Heart was regular rate and rhythm. Lungs are clear and equal bilaterally. Abdomen is soft. Bowel sounds are normal. There is some mild epigastric tenderness. There is no rebound or guarding noted. Cranial nerves II through XII are intact. There are no focal motor or sensory deficits noted. Extremities are intact. There is no calf tenderness or edema. Test Results: CBC and comprehensive metabolic profile were obtained and were within normal limits. Urinalysis showed leukocyte esterase of 25, occult blood of 50, and ketones of 150. There were 5-10 red blood cells. There are no white blood cells noted. Emergency Department Course and Treatment: Patient was given IV fluids, morphine, and Zofran. Patient was feeling better on reevaluation. Patient was instructed to follow-up with his primary care physician in 5 to 7 days. Patient was also instructed to follow-up with Dr. Saini as scheduled. Patient understood and was agreeable with the plan. All questions were answered. Disposition: Discharge home Impression: Nausea, vomiting, diarrhea This note was generated with [employer] dictation software. It may contain incorrect words, spelling, and punctuation that were not noted in review of the chart prior to signing ED Disposition - Plan for ED Patient: Disposition: Home or Assisted Living Diagnosis: Nausea vomiting and diarrhea Instructions: ED Vomiting and Diarrhea Nonspecific Adult Referrals: Jude Saini MD [STAFF PHYSICIAN] - 5-7 Days
[2020-05-26 21:57] VITALS: BP 100/70; PULSE 71; RESP 17; O2SAT 98
== END 2020-05-26 21:59 | disposition home or self-care (01) ==
PROVIDERS: Emergency Provider Emergency Medicine
DX: R11.2 Nausea with vomiting, unspecified (principal); R19.7 Diarrhea, unspecified; R10.9 Unspecified abdominal pain; J34.89 Other specified disorders of nose and nasal sinuses; F17.210 Nicotine dependence, cigarettes, uncomplicated
CPT/HCPCS: 80048; 80076; 81001; 83690; 85025; 96361; 96374; 96375; 99283; J7030; A4216; J2405

== ENCOUNTER 2020-08-14 18:18 | Emergency (ER) | payer MEDICAID, SELFPAY ==
[2020-08-14 18:19] VITALS: BP 134/78; PULSE 78; RESP 16; TEMP 36.8; O2SAT 99; BMI 20.7
--- NOTE | 2020-08-14 19:49 | ED.DCSUM_ITS ---
- ER Visit Summary Date of Service: 08/14/20 Chief Complaint: Dental pain History of Present Illness: The patient is a 45 M presenting with dental pain. Patient states this started today. He states he fractured his tooth awhile ago. Today he woke up with increasing swelling left lower jaw. He has tried ibuprofen at home. Denies fever. He is unable to see his dentist until Monday. Physical Examination: Vitals are stable. Patient is afebrile. Alert no acute distress. HEENT exam widespread dental decay. No areas of fluctuance. No sublingual edema. No significant mandible swelling. Neck is supple. Lungs are clear and equal bilaterally. Heart is regular rate and rhythm. Extremities are unremarkable. Skin is warm and dry. Remainder of exam is unremarkable. Emergency Department Course and Treatment: Patient was given [place] x1. He is given prescription for Naprosyn and clindamycin. Advised to follow-up with dentist. Advised return to ED if worsening complaints. Disposition: Discharge home Impression: Odontalgia This note was generated with [employer] dictation software. It may contain incorrect words, spelling, and punctuation that were not noted in review of the chart prior to signing ED Disposition - Plan for ED Patient: Referrals: Care Physician,No Primary [Primary Care Provider] -
--- NOTE | 2020-08-14 19:52 | ED.DEP ---
ED Disposition - Plan for ED Patient: Instructions: ED Tooth Pain Prescriptions: Clindamycin [Cleocin] 300 mg PO 4X/DAY #80 cap Prescription Printed Naproxen [Naprosyn] 500 mg PO BID PRN #20 tab Prescription Printed Referrals: Care Physician,No Primary [Primary Care Provider] -
[2020-08-14] MEDS: HYDROcodone Bitartrate/Apap 5/325 Tablet PO (19:56)
[2020-08-14] MEDS: Clindamycin HCl 150 MG Capsule 450 MG PO (19:56)
== END 2020-08-14 20:10 | disposition home or self-care (01) ==
LOC: ED 20:02
PROVIDERS: Emergency Provider Emergency Medicine
DX: K08.89 Other specified disorders of teeth and supporting structures (principal); F17.200 Nicotine dependence, unspecified, uncomplicated
CPT/HCPCS: 99281; 99283

== ENCOUNTER 2021-04-18 19:00 | Emergency (ER) | payer OTHER, MEDICAID, SELFPAY ==
[2021-04-18 19:01] VITALS: BP 114/68; PULSE 76; RESP 16; TEMP 36.8; O2SAT 98; BMI 20.7
--- NOTE | 2021-04-18 20:01 | EX.ED.DYSGE1 ---
HPI History of Present Illness Chief Complaint: Abscess Informant: patient Onset/Context/Timing Onset: Yesterday Context: Gradual Onset Timing: Continuous Current Severity: Mild Maximum Severity: Mild Narrative Narrative: Right lateral neck possible abscess. Patient states it started yesterday. He tried to express pus noted that he was unable. Denies any fever or chills. No prior history. Denies any IV drug abuse. Prior similar symptoms: No Recent Illness/Hospitalization: No PFSH PFSH Medical History (Updated 04/18/21 @ 20:[address] Jesus Stout MD) Abdominal pain Acid reflux Diarrhea History of back problems History of drug abuse Malaise and fatigue Nausea Tobacco user Weight loss Home Medications NK 04/18/21 [History Last Taken Unknown] cephalexin 500 mg PO Q6H 7 Days #28 cap 04/18/21 [Rx Last Taken Unknown] Allergy/AdvReac Type Severity Reaction Status Date / Time Penicillins [PCN] Allergy Unknown Verified 04/18/21 19:01 Surgical History No history of previous surgery Social History Smoking Status: Current every day smoker tobacco type: cigarettes alcohol intake: current alcohol intake frequency: a few times a month substance use type: does not use ROS ROS ED Review of Systems ROS Unobtainable: Denies due to encephalopathy Constitutional Constitutional ED: Denies chills or fever(s) Eyes Eyes: Denies change in vision ENT ENT ED: Denies ear pain or sore throat Cardiovascular Cardiovascular: Denies chest pain Respiratory/Chest Respiratory/Chest: Denies cough or dyspnea Gastrointestinal Gastrointestinal: Denies abdominal pain, diarrhea, nausea or vomiting Genitourinary Genitourinary ED: Denies dysuria Musculoskeletal Musculoskeletal: Denies myalgias Integumentary Reports abscess; Denies rash Neurologic Neurologic: Denies headache(s) Psychiatric Psychiatric: Denies depression Endocrine Endocrinology: Denies polyuria EXAM Physical Exam Narrative Exam Narrative: Well-appearing middle-aged male no acute distress. Vital signs stable afebrile. Right lateral side of his neck he has about a 1 cm area with either infected lymph node or an early abscess. Is not substantially flexion Const Vital Signs: 04/18/21 19:01 Temperature 98.3 F Temperature Source Temporal Pulse Rate 76 Respiratory Rate 16 Blood Pressure 114/68 Blood Pressure Mean 83 Pulse Ox 98 Oxygen Delivery Method Room Air Positive well nourished and well developed General Appearance ED: well developed HEENT Reports moist mucous membranes Negative for trauma or tenderness Eyes PERRL and EOMs intact bilaterally Neck supple and No no JVD Neck Narrative: Right lateral neck 1 cm either abscess at subcu or in inflamed lymph node. Not a lot of fluctuance. General: tenderness Chest Wall inspection of chest normal and palpation of chest normal Resp normal respiratory effort and clear to auscultation bilaterally Cardio regular rate, regular rhythm, S1 normal heart sound, S2 normal heart sound and no murmurs GI normal to inspection, nondistended, normoactive bowel sounds, non-tender and non-distended Palpation: soft Back/Spine no CVA tenderness Extremity normal to inspection General Extremety ED: Negative for edema or tenderness General Extremity: Negative for edema Neuro oriented x3 and CN's II-XII intact bilaterally Sensorium / Orientation: alert Motor Exam: strength 5/5 throughout Psych mental status grossly normal Skin no rashes or lesions noted MDM MDM MDM Narrative Medical decision making narrative: Patient with a right lateral neck either abscess or infected lymph node. Will apply let to the area. And I will aspirate it with a needle. After the let was applied for about 20 minutes I went back to do a needle aspiration. It was firm it was not fluctuant I did not think we would be able to aspirate anything so I did not even attempt. Patient be placed on Keflex for an infected lymph node. He knows to return if it gets larger. Discharge Plan Triage Chief Complaint: Abscess ED Provider: Jesus Stout Dx/Rx/DC Orders Clinical Impression: Acute lymphadenitis of neck Instructions: ED ADENITIS Cervical Abx Tx Prescriptions: New cephalexin 500 mg capsule 500 mg PO Q6H 7 Days Qty: 28 RF: 0 No Action NK RF: 0 Primary Care Provider: Care Physician,No Primary Referrals: Donato Wooten MD [STAFF PHYSICIAN] - 1 Week if not improving Care Physician,No Primary [Primary Care Provider] - Activity Restrictions/Additional Instructions: This is an infected lymph node. He will be placed on antibiotic Keflex 1 pill 4 times a day for 1 week. Finish the prescription. Tylenol and/or Motrin for pain. Warm compresses to the side of your neck. If this gets much larger or you feel worse come in to have it reevaluated. At this time there is nothing to drain. Disposition Disposition: Home, self care
[2021-04-18 20:41] VITALS: RESP 15; RESP 16; O2SAT 98
[2021-04-18] MEDS: Lidocaine/Epi/Tetracaine 50 ML 1 APPLIC TOPICAL (20:42)
[2021-04-18] MEDS: Cephalexin 250 MG Capsule 500 MG PO (20:44)
== END 2021-04-18 20:46 | disposition home or self-care (01) ==
LOC: ED 20:34
PROVIDERS: Emergency Provider Emergency Medicine
DX: L04.9 Acute lymphadenitis, unspecified (principal); F17.210 Nicotine dependence, cigarettes, uncomplicated
CPT/HCPCS: 99284

== ENCOUNTER 2022-06-09 16:46 | Emergency (ER) | payer BC, MEDICAID, SELFPAY ==
[2022-06-09 16:47] VITALS: BP 160/90; PULSE 75; RESP 14; TEMP 37.1; O2SAT 100; BMI 22.8
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
[2022-06-09] MEDS: Morphine 4 MG/ML Syringe IV (17:23)
[2022-06-09] MEDS: Ondansetron 4 MG/2 ML Vial IV (17:23)
[2022-06-09 18:56] VITALS: BP 168/76; PULSE 75; RESP 16; O2SAT 97
== END 2022-06-09 19:00 | disposition home or self-care (01) ==
PROVIDERS: Emergency Provider Emergency Medicine; Visit Provider Emergency Medicine
DX: S10.93XA Contusion of unspecified part of neck, initial encounter (principal); S10.91XA Abrasion of unspecified part of neck, initial encounter; F17.210 Nicotine dependence, cigarettes, uncomplicated; W22.8XXA Striking against or struck by other objects, initial encounter
CPT/HCPCS: 70498; 99284; Q9967; A4216; J2405

== ENCOUNTER 2023-06-05 08:41 | Emergency (ER) | payer BC, SELFPAY ==
[2023-06-05 08:42] VITALS: BP 158/93; PULSE 60; RESP 16; TEMP 36.1; O2SAT 100; BMI 22.8
--- NOTE | 2023-06-05 08:50 | EDS_ITS ---
HPI History of Present Illness Chief Complaint: Chest Pain Detail of Chief Complaint: Chest pain yesterday after noon and this morning Informant: patient Onset/Context/Timing Onset: Today and Yesterday Activity at onset: sudden, rest (Yesterday) and light activity (Walking to a semitrailer) Timing: Continuous (Has been continuous since onset 1 hour ago) and Intermittent (Yesterday lasted for 20 minutes) Quality: Positive for Pressure and Tightness Location: Substernal Current Severity: Moderate Maximum Severity: Severe Worsened By: Nothing Relieved By: Nothing Associated Symptoms: Positive for Nausea, Diaphoresis, Dyspnea and - (He reports that it radiated to his left scapula, shoulder and arm yesterday.); Negative for Vomiting, Cough, Fever, Lightheadedness, Acid Reflux or Palpitations Narrative Narrative: Patient is a 48-year-old male who is a smoker. He has no medical problems on no medication. He saw 1 month ago for upper respiratory type symptoms. He reports chest pressure that started yesterday at approximately 1600 while sitting. This was associated with nausea, diaphoresis, shortness of breath and radiation to left scapula and shoulder and down his left upper extremity. This morning he experienced chest tightness that was not as severe with nausea, diaphoresis without radiation and only mild dyspnea. This occurred while he was walking towards a semitractor trailer. He still having discomfort in his chest. He had a stress test 20 years ago for issues . He denies history of VTE. Denies leg pain, swelling discoloration. He has had no recent surgery or immobilization. Prior Similar Symptoms: No Recent Illness/Hospitalization: No CVD Risk Factors: Positive for Smoking; Negative for Hypertension, Diabetes, Hypercholesterolemia or Family History 1' </=55 PE Risk Factors: Negative for Recent Travel/Surgery, Recent Immobilization, Prior DVT or PE, Cancer or OCP + Smoking + >/=35 TAD Risk Factors: Negative for Marfan's Syndrome, Hypertension or Family History [facility] Medical History (Updated 06/05/23 @ 11:[address] Mike Pena MD) Abdominal pain Acid reflux Diarrhea History of back problems History of drug abuse Malaise and fatigue Nausea Tobacco user Weight loss Home Medications NK 04/18/21 [History Last Taken Unknown] famotidine 40 mg tablet (Pepcid) 40 mg PO DAILY #14 tabs 06/05/23 [Rx Last Taken Unknown] Allergy/AdvReac Type Severity Reaction Status Date / Time Penicillins [PCN] Allergy Unknown Verified 06/05/23 08:42 Surgical History No history of previous surgery Social History Smoking Status: Current every day smoker tobacco type: cigarettes alcohol intake: current alcohol intake frequency: a few times a month substance use type: does not use ROS ROS ED Constitutional Constitutional ED: Denies chills, fever(s), subjective, sweats or weight loss Eyes Eyes: Reports none ENT ENT ED: Denies ear pain, rhinorrhea or sore throat Cardiovascular Cardiovascular: Reports as per HPI; Denies orthopnea or paroxysmal nocturnal dyspnea Respiratory/Chest Respiratory/Chest: Reports dyspnea; Denies cough, dyspnea on exertion, orthopnea or paroxysmal nocturnal dyspnea Gastrointestinal Gastrointestinal: Denies abdominal pain, diarrhea, melena, nausea or vomiting Genitourinary Genitourinary ED: Denies dysuria, hematuria or urinary frequency Musculoskeletal Musculoskeletal: Denies arthralgias, back pain, myalgias or neck pain Integumentary Denies rash Neurologic Neurologic: Denies headache(s) or paresthesias Psychiatric Psychiatric: Denies anxiety or depression Endocrine Endocrinology: Denies cold intolerance or heat intolerance Hematologic/Lymphatic Hematologic/Lymphatic: Denies easy bleeding or easy bruising EXAM Physical Exam Const Vital Signs: 06/05/23 08:42 06/05/23 08:53 Temperature 97 F L Temperature Source Temporal Pulse Rate 60 65 Respiratory Rate 16 16 Blood Pressure 158/93 H 137/100 H Blood Pressure Mean 114 112 Pulse Ox 100 99 Oxygen Delivery Method Room Air Positive well nourished and well developed General Appearance ED: well developed and NAD; Negative for pallor HEENT Reports moist mucous membranes normocephalic and atraumatic Eyes PERRL and EOMs intact bilaterally General Eye ED: Negative for pale conjunctiva or scleral icterus Chest Wall inspection of chest normal Resp normal respiratory effort and clear to auscultation bilaterally Cardio regular rhythm, S1 normal heart sound, S2 normal heart sound and no murmurs Rate: bradycardia Peripheral Pulses: pulses 2+ throughout GI normal to inspection, nondistended, normoactive bowel sounds, soft to palpation, non-tender, non-distended and no masses; Negative for hepatosplenomegaly Back/Spine no CVA tenderness and no thoracic nor lumbar tenderness Extremity normal to inspection Extremity Narrative: There is no asymmetry, swelling, discoloration, leg vein distention, palpable cords or tenderness along the distribution of the deep venous system. Neuro oriented x3, no sensory deficits noted and gait normal Sensorium / Orientation: awake Psych mental status grossly normal Skin no rashes or lesions noted and no wounds General Skin Exam: Negative for jaundice or pallor Heart Score History: Moderately Suspicious ECG: Normal Age: >45 - <65 years Risk Factors: 1 or 2 Risk Factors Score: 3 MDM MDM MDM Narrative Medical decision making narrative: Patient presents with chest discomfort. Differential would include cardiac versus noncardiac. To rule out non-ST elevation PR since his EKG does not reveal evidence of myocardial infarction troponin with 2-hour troponin was ordered. Chest x-ray to assess for noncardiac etiology and assess heart size. BMP to assess renal function, glucose and anion gap. CBC to rule out anemia. D-dimer was not obtained since patient is PERC negative. There are no records for inpatient care. History & Record Review Additional record(s) reviewed:: Prior ED visit and Prior labs Lab Data Attestation: I reviewed the patient's lab results. Lab results narrative: CBC is unremarkable. MCV is likely a evaded. Basic metabolic panel is unremarkable with a slight elevation in chloride. First troponin is normal, 7. Patient was informed of his results at 0934. He was told that a repeat troponin was ordered. He was asked questions regarding GERD reflux. He states sometimes he has heartburn that is alleviated when he drinks a glass of milk. Repeat troponin is 8 with a delta of 1. Patient was discharged home with prescription for Pepcid. Labs: Laboratory Results - last 24 hr 06/05/23 06/05/23 08:50 10:48 WBC 9.1 RBC 4.86 Hgb 15.7 Hct 46.6 MCV 95.9 H MCH 32.3 H MCHC 33.7 RDW Std Deviation 46.5 H RDW Coeff of Alexus 13.1 Plt Count 314 MPV 8.6 Immature Gran % (Auto) 0.200 Neut % (Auto) 56.1 Lymph % (Auto) 32.5 [place] % (Auto) 7.7 Eos % (Auto) 2.7 Baso % (Auto) 0.8 Absolute Neuts (auto) 5.1 Absolute Lymphs (auto) 2.94 Nucleated RBC % 0 Sodium 140 Potassium 4.0 Chloride 109 H Carbon Dioxide 28.0 Anion Gap 3 L BUN 10 Creatinine 1.02 Estim Creat Clear Calc 77.88 Est GFR (MDRD) Af Amer 101 Est GFR (MDRD) Non-Af 83 BUN/Creatinine Ratio 9.8 L Glucose 96 Calcium 9.0 Troponin I High Sens 7 8 Radiography Chest X-Ray - ED: 1 View and Read by ED Physician (Cardiac silhouette and size normal. Lung parenchyma is normal. Perihilar regions normal. Osseous structures are unremarkable. This was independent reviewed interpreted by me at 0905.) Diagnostic Testing: Clinical Impression(s) from Imaging Studies Chest X-Ray 06/05/23 09:00 IMPRESSION: Normal x-ray examination of the chest. Electronically Signed: Luke Manzano MD at 10:13 EDT , EKG Initial EKG: Attestation: I personally reviewed and interpreted this EKG as follows: Interpretation: Sinus Bradycardia (Rate is 55. WY interval is 150 ms. Cures duration 92 ms. QT durations are 96 ms. Wells is normal. Patient has.) Differential Diagnosis Chest pain/SOB: pulmonary embolism Reason(s) PE less likely: Positive for PERC negative, not tachycardic and not hypoxic, pneumothorax Reason(s) pneumothorax less likely: Positive for bilateral breath sounds and CANOPY STRINGER withhout PTX, pneumonia Reason(s) pneumonia less likely: Positive for no infiltrate on CXR, no elevation in WBC count, no noted fever and symptoms not consistent with acute infection and aortic dissection Reason(s) Aortic dissection less likely:: Positive for normal vascular exam, no history of HTN, normal neurological exam, no significant risk factors for dissection, no widened mediastinum on CXR, pain not sudden onset, no ripping/tearing pain, no pain to back and blood pressure appropriate in ED Treatment and Re-Evaluation :: Patient was informed of the exact cause of his symptoms unknown. This may represent reflux. For this reason he was placed on Pepcid. Discharge Plan Triage Chief Complaint: Chest Pain ED Provider: Mike Pena Dx/Rx/DC Orders Clinical Impression: Acute dyspnea, Chest tightness, Tobacco use Instructions: ED Chest Pain, Uncertain Cause Prescriptions: New famotidine [Pepcid] 40 mg tablet 40 mg PO DAILY Qty: 14 0RF No Action NK Primary Care Provider: Care Physician,No Primary Referrals: Kendall Dye MD [Med Staff - Active Staff] - 5-7 Days Care Physician,No Primary [Primary Care Provider] - Disposition Disposition: Home, Self Care
[2023-06-05 08:53] VITALS: BP 137/100; PULSE 65; RESP 16; O2SAT 99
[2023-06-05 09:00] LABS: Absolute Lymphocyte Count 2.94 X10^3/uL (0.83-4.51); Absolute Neutrophil Count 5.1 X10^3/uL (2.0-7.7); Basophil# 0.07 X10^3/uL; Basophil% 0.8 % (0-1); Eosinophil# 0.24 X10^3/uL; Eosinophils% 2.7 % (0-5); Hematocrit 46.6 % (40-54); Hemoglobin 15.7 g/dL (13.0-16.5); Lymphocyte # 2.94 X10^3/ul (0.83-4.51); Lymphocyte % 32.5 % (19-41); Mean Corp Hgb Conc 33.7 g/dL (32-36); Mean Corpuscular Hgb 32.3 pg (27.0-32.0); Mean Corpuscular Volume 95.9 fL (80-94); Mean Platelet Vol. 8.6 fl (6.2-12.0); Monocyte% 7.7 % (0-10); NRBC Flagged by Analyzer 0 % (0-5); Neutrophil # 5.08 X10^3/uL (2.7-7.7); Neutrophil % 56.1 % (47-70); Platelet Count 314 K/mm3 (150-450); RBC Distribution Width CV 13.1 % (11.6-14.6); RBC Distribution Width SD 46.5 fl (35.1-43.9); Red Blood Count 4.86 M/mm3 (4.6-6.2); White Blood Count 9.1 K/mm3 (4.4-11.0)
--- NOTE | 2023-06-05 09:00 | RAD_ITS ---
STUDY: X-RAY CHEST REASON FOR EXAM: Male, 48 years old. Chest pain TECHNIQUE: Single AP portable view of the chest. COMPARISON: Comparison is made with prior study dated April 24, 2020. FINDINGS: EKG electrodes are seen. The lungs are clear and expanded. There is no demonstrated pleural abnormality. Normal size heart. Normal mediastinum and francis. Normal visualized pulmonary arteries. Normal visualized aortic arch and descending thoracic aorta. Normal visualized thoracic spine. Normal visualized ribs, clavicles, and shoulders. There is no demonstrated abnormality of the visualized soft tissue structures of the upper abdomen. RAD/Chest 1 View (Portable) IMPRESSION: Normal x-ray examination of the chest. Electronically Signed: Luke Manzano MD at 10:13 EDT ,
--- NOTE | 2023-06-05 09:00 | EKG12_ITS ---
Test Reason : Blood Pressure : / mmHG Vent. Rate : 055 BPM Atrial Rate : 055 BPM P-R Int : 150 ms QRS Dur : 092 ms QT Int : 396 ms P-R-T Axes : 065 025 041 degrees QTc Int : 378 ms Sinus bradycardia Minimal voltage criteria for LVH, may be normal variant ( Sokolow-Barahona ) Borderline ECG Confirmed by MARLI MEDELLIN, FEMI ([id number]), industrial editor IRAM BENITEZ ([id number]) on 06/06/2023 9:37:31 AM Referred By: FUAD Confirmed By:FEMI CALLES MD
[2023-06-05] MEDS: Aspirin 81 MG TAB.CHEW 324 MG PO (09:16)
[2023-06-05 09:17] LABS: Anion Gap 3 (5-15); BUN 10 mg/dL (7-18); BUN/Creat Ratio 9.8 RATIO (10-20); Chloride 109 mmol/L (98-107); Creatinine, Serum 1.02 mg/dL (0.70-1.30); EST Glomerular Filtration Rate 83 mL/min (>60); Est Glom Filt Rate - Afr Amer 101 mL/min (>60); Estimated Creatinine Clearance 77.88 ml/min; Glucose 96 mg/dL (74-106); Sodium Level 140 mmol/L (136-145); Troponin-I HS (w/2H Reflex) 7 pg/mL (3.0-78.0)
--- NOTE | 2023-06-05 10:51 | CM.ED ---
Social Work Note Referral Source: case find Referral Reason: no PCP SW met with patient and introduced herself and role as [facility]. Patient lying on hospital bed and agreeable to speak with SW. SW inquired about patient's insurance and current PCP. Patient verified insurance and reports no current PCP. SW provided patient with a list of local PCPs in network with patient's insurance and accepting new patients. Patient was receptive towards list and voiced no other needs. SW remains available if needs arise. Janet Haque MSW, CUONG
[2023-06-05 10:53] LABS: Reflex Troponin-HS? (from REC) Y
[2023-06-05 11:11] LABS: Troponin-I HS 8 pg/mL (3.0-78.0)
[2023-06-05 11:46] VITALS: BP 113/74; PULSE 58; RESP 16; O2SAT 98
== END 2023-06-05 11:47 | disposition home or self-care (01) ==
PROVIDERS: Emergency Provider Emergency Medicine; Visit Provider Emergency Medicine
DX: R07.89 Other chest pain (principal); R06.00 Dyspnea, unspecified; K21.9 Gastro-esophageal reflux disease without esophagitis; F17.210 Nicotine dependence, cigarettes, uncomplicated
CPT/HCPCS: 71045; 80048; 84484; 85025; 93005; 99284; A4216

== ENCOUNTER → 2023-08-03 | Outpatient (CLI) | payer BC, SELFPAY ==
[2023-08-03 18:24] LABS: AST(SGOT) 16 U/L (15-37); Alanine Aminotransfer ALT/SGPT 26 U/L (16-61); Albumin, Serum 3.5 g/dL (3.2-5.0); Alkaline Phosphatase 59 U/L (45-117); Anion Gap 6 (5-15); BUN 13 mg/dL (7-18); BUN/Creat Ratio 12.4 RATIO (10-20); Calcium,Total 8.8 mg/dL (8.5-10.1); Chloride 105 mmol/L (98-107); Cholesterol 139 mg/dL (200); Creatinine, Serum 1.05 mg/dL (0.70-1.30); EST Glomerular Filtration Rate 80 mL/min (>60); Est Glom Filt Rate - Afr Amer 97 mL/min (>60); Globulin 3.5 g/dL (2.2-4.2); Glucose 104 mg/dL (74-106); High Density Lipoprotein 46 mg/dL; Potassium 3.6 mmol/L (3.5-5.1); Sodium Level 136 mmol/L (136-145); Thyroid Stim Hormone (TSH) 1.66 uIU/mL (0.358-3.74); Triglycerides 94 mg/dL; Very Low Density Lipoprotein 19 mg/dL (5-40)
== END | disposition home or self-care (01) ==
LOC: BIMLAB 15:49
PROVIDERS: PCP Internal Medicine; Visit Provider Internal Medicine
DX: R07.9 Chest pain, unspecified (principal); Z13.6 Encounter for screening for cardiovascular disorders
CPT/HCPCS: 36415; 80053; 80061; 84443

== ENCOUNTER → 2023-09-06 | Outpatient (CLI) | payer BC, SELFPAY ==
--- NOTE | 2023-09-10 11:15 | STRESSREP ---
Stress Test Report Date: 09/06/2023 Procedure: Exercise tolerance test Indications: Chest pain Consent: Per the patient Procedure: The patient exercised on a Abel protocol for 10 minutes achieving a peak heart rate of 155 bpm (89% predicted maximal heart rate) with a peak blood pressure 158/78 mmHg and a peak MET capacity of approximately 13.4 MET's. The baseline ECG demonstrated normal sinus rhythm. The peak exercise ECG demonstrated no significant ischemic changes. [There were no cardiac dysrhythmias pretest, during exercise, or recovery]. The functional capacity was considered normal for age. The patient had no complaint of chest discomfort during exercise or recovery. The examination was discontinued secondary to achieving target heart rate. Impression: 1. Technically adequate (percent predicted maximal heart rate greater than 85%) exercise tolerance test 2. Stress test is negative for exercise-induced chest pain. 3. Stress test test is negative for exercise-induced EKG changes of ischemia. 4. Functional capacity is normal for age This note was generated with [employer] software. It may contain incorrect words, spelling, and punctuation that were not noted in checking the note before signing.
== END | disposition home or self-care (01) ==
LOC: CVS 12:15
PROVIDERS: PCP Internal Medicine; Referring Provider Internal Medicine; Visit Provider Internal Medicine
DX: R07.9 Chest pain, unspecified (principal)
CPT/HCPCS: 93017

== ENCOUNTER 2024-02-20 16:39 | Emergency (ER) | payer MEDICAID, SELFPAY ==
[2024-02-20 16:39] VITALS: BP 138/66; PULSE 78; RESP 16; TEMP 36.4; O2SAT 97; BMI 22.3
--- NOTE | 2024-02-20 17:20 | EDS_ITS ---
HPI History of Present Illness Chief Complaint: Dental Detail of Chief Complaint: Dental pain that started yesterday Informant: patient Onset/Context/Timing Onset: Yesterday Context: Sudden Onset Timing: Continuous Quality: Pain Location: Tooth #21 Current Severity: Moderate Maximum Severity: Severe Worsened by: Air Relieved by: - (Nothing) Associated Symptoms Assocated Symptom - Dental: Negative for fever, jaw swelling, face swelling, cold sensitivity or hot sensitivity Narrative Narrative: Patient is a 48-year-old male who presents with dental pain. The started yesterday. Pain has intensified. He does not have sensitivity to whole hot or cold liquids. Air does exacerbate his pain he has noted swelling. He is able to open his mouth completely. He denies change in voice. He denies difficulty swallowing liquids or solids. He has no history of medic fever, heart murmur mitral valve prolapse or being immune suppressed. He does have a dentist. He denies fever or chills. He denies facial rash. Prior similar symptoms: Yes Recent Illness/Hospitalization: No PFSH PFSH Medical History Acid reflux Acute lymphadenitis of neck Diverticulitis Heart valve problem History of back problems Malaise and fatigue Nausea Tobacco user Weight loss Home Medications blood pressure test kit-medium #1 ea 08/01/23 [Rx Last Taken Unknown] azithromycin 250 mg tablet 250 mg PO DAILY #4 TABLETS 02/20/24 [Rx Last Taken Unknown] hydrocodone-acetaminophen 5-325mg 5mg-325mg 1 tab PO Q6H PRN PRN Pain 3 days #10 TABLETS 02/20/24 [Rx Last Taken Unknown] ibuprofen 600 mg tablet 600 mg PO Q8H PRN PRN pain #15 TABLETS 02/20/24 [Rx Last Taken Unknown] Allergy/AdvReac Type Severity Reaction Status Date / Time Penicillins [PCN] Allergy Unknown Verified 02/20/24 16:39 Family History Other No pertinent family history Surgical History H/O hand surgery Social History household members: none current occupational status: employed 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[employer] Smoking Status: Current every day smoker tobacco type: cigarettes Electronic Cigarette Use: not used quit status: considering quitting alcohol intake: current alcohol intake frequency: a few times a month substance use type: does not use and former substance user Date of last use: marijuana, used in 2019 do you feel safe at home: Yes ROS ROS ED Constitutional Constitutional ED: Denies chills, fever(s), subjective or sweats Eyes Eyes: Denies blurry vision or change in vision ENT ENT ED: Reports other Details: Per HPI narrative ; Denies ear pain, rhinorrhea or sore throat Cardiovascular Cardiovascular: Denies chest pain or palpitations Respiratory/Chest Respiratory/Chest: Denies cough Gastrointestinal Gastrointestinal: Denies nausea or vomiting Musculoskeletal Musculoskeletal: Denies arthralgias, myalgias or neck pain Integumentary Denies rash EXAM Physical Exam Const Vital Signs: 02/20/24 16:39 Temperature 97.6 F L Temperature Source Temporal Pulse Rate 78 Respiratory Rate 16 Blood Pressure 138/66 H Blood Pressure Mean 90 Pulse Ox 97 Oxygen Delivery Method Room Air Positive well nourished and well developed Constitutional Narrative: Patient appears uncomfortable. General Appearance ED: well developed HEENT HEENT Narrative: There is no trismus. There is swelling around tooth #21. There is no fluctuance. There is no fullness or firmness to the floor of the mouth. There is 1 shoddy left submandibular node appreciated. Trachea is midline. There is no inspiratory stridor. There is no dysphonia. Face and Sinus: sinuses nontender Mouth ED: Yes oral and palatal mucosa normal, Yes lips normal, Yes tongue normal, Yes salivary gland normal, No mouth trauma and Yes oral and palatal muc hilda abnormal Mouth: oral and palatal mucosa normal, lips normal, tongue normal, salivary gland normal, No mouth trauma and oral and palatal mucosa abnormal Teeth and Gingiva: abnormal tooth and associated gingiva, caries, gingiva abnormal, poor dentition and teeth discoloration Throat: posterior oropharynx normal Eyes PERRL and EOMs intact bilaterally Neck no lymphadenopathy, supple and no JVD General: normal visual inspection; Negative for anterior neck swelling Resp normal respiratory effort, no retractions and clear to auscultation bilaterally Cardio regular rate, regular rhythm, S1 normal heart sound and S2 normal heart sound Neuro oriented x3 and CN's II-XII intact bilaterally Psych mental status grossly normal Skin no rashes or lesions noted and no wounds MDM MDM MDM Narrative Medical decision making narrative: Patient has numerous dental caries with exposure of the pulp. The culprit causing the pain is tooth #21 since there is swelling around the tooth. There is no fluctuance that is amenable to I&D. Patient was treated with antibiotics. Since he has allergy to penicillin he received a macrolide. He also received NSAID and opiate analgesia for his pain. He was instructed to contact his dentist to soon as possible. He was told the only 1 that can alleviate his pain is his dentist. Discharge Plan Triage Chief Complaint: Dental ED Provider: Mike Pena Dx/Rx/DC Orders Clinical Impression: Chronic periodontal disease, Gingivitis, Dental caries into pulp, Abscess, dental Instructions: ED Dental Abscess Prescriptions: New azithromycin [azithromycin] 250 mg tablet 250 mg PO DAILY Qty: 4 0RF hydrocodone-acetaminophen [hydrocodone-acetaminophen] 5-325 mg tablet 1 tab PO Q6H PRN PRN (Reason: Pain) 3 Days Qty: 10 0RF ibuprofen 600 mg tablet 600 mg PO Q8H PRN PRN (Reason: pain) Qty: 15 0RF No Action (DME) blood pressure test kit-medium Kit See Rx Instructions .Route Qty: 1 0RF Rx Instructions: As directed Primary Care Provider: Stephanie White Referrals: Stephanie White MD [Primary Care Provider] - Dentist,Your [STAFF PHYSICIAN] - 3-5 Days Disposition Disposition: Home, Self Care
[2024-02-20] MEDS: HYDROcodone Bitartrate/Apap 5/325 Tablet PO (17:25)
[2024-02-20] MEDS: Azithromycin 250 MG Tablet 500 MG PO (17:26)
[2024-02-20] MEDS: Ibuprofen 600 MG Tablet PO (17:26)
[2024-02-20 17:30] VITALS: BP 133/93; PULSE 90; RESP 16; TEMP 36.6; O2SAT 99
== END 2024-02-20 17:31 | disposition home or self-care (01) ==
PROVIDERS: Emergency Provider Emergency Medicine; PCP Internal Medicine; Visit Provider Emergency Medicine
DX: K05.30 Chronic periodontitis, unspecified (principal); K04.7 Periapical abscess without sinus; K02.9 Dental caries, unspecified; F17.210 Nicotine dependence, cigarettes, uncomplicated; K05.10 Chronic gingivitis, plaque induced
CPT/HCPCS: 99283

== ENCOUNTER 2024-05-04 21:58 | Emergency (ER) | payer MEDICAID, SELFPAY ==
[2024-05-04 21:59] VITALS: BP 144/88; PULSE 56; RESP 14; TEMP 35.6; O2SAT 91; BMI 23.1
--- NOTE | 2024-05-04 22:15 | ED.VIS.DENTA ---
HPI History of Present Illness Chief Complaint: Dental [facility] Medical History Acid reflux Acute lymphadenitis of neck Diverticulitis Heart valve problem History of back problems Malaise and fatigue Nausea Tobacco user Weight loss Home Medications ?Medication ?Instructions ?Recorded ?Last Taken ?Type blood pressure test kit-medium #1 ea 08/01/23 Unknown Rx Allergy/AdvReac Type Severity Reaction Status Date / Time Penicillins (PCN) Allergy Unknown Verified 05/04/24 22:00 Family History Other No pertinent family history Surgical History H/O hand surgery Social History household members: none current occupational status: employed 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[employer] Smoking Status: Current every day smoker tobacco type: cigarettes Electronic Cigarette Use: not used quit status: considering quitting alcohol intake: current alcohol intake frequency: a few times a month substance use type: does not use and former substance user Date of last use: marijuana, used in 2019 do you feel safe at home: Yes EXAM Physical Exam Const Vital Signs: 05/04/24 21:59 Temperature 96.1 F L Temperature Source Temporal Pulse Rate 56 L Respiratory Rate 14 Blood Pressure 144/88 H Blood Pressure Mean 106 Pulse Ox 91 MDM MDM MDM Narrative Medical decision making narrative: HISTORY OF PRESENT ILLNESS: 49-year-old male presents with left lower dental pain. Notes cough for months worse last week. States having issues with insurance and affording an oral surgeon. States his oral surgery will cost approximately 100 hours [id number] is approximately $500.08. He states he had significant pain. Denies any drooling, fever, neck stiffness. He denies history of diabetes or other immunocompromising states. Denies any vomiting. REVIEW OF SYSTEMS: Pertinent positives: Dental pain Pertinent negatives: Sore throat, neck stiffness, drooling, trismus PHYSICAL EXAM: Nursing triage notes reviewed, Vital signs reviewed Constitutional: please see mdm HENT: MMM, significant dental caries, doctors coloration of left lower incisor, no palpable induration, fluctuance or evidence of dental abscess. poor dentition, no submandibular edema or induration, no tonsillar exudates or erythema, uvula midline, patient was controlling secretions, no drooling, no trimus, no dysphonia Eyes: Pupils equal round and reactive to light, Extraocular muscles intact Neck: No stridor, no JVD, full neck ROM Lungs: Clear to auscultation, No wheezing or rales. No increased work of breathing, no conversational dyspnea, no accessory muscle use, no nasal flaring. No respiratory distress noted Heart: Regular rate and rhythm, No murmurs, No rubs and No gallops, 2+ distal pulses (radial, femoral, posterior tibial) in all extremities MEDICAL DECISION MAKING: Chief Complaint: Dental pain External records reviewed: Prior ED records reviewed: Seen in ED in January for similar issue. Factors affecting care: Tobacco abuse MDM Narrative: The patient was hemodynamically stable, afebrile, nontoxic-appearing. Exam consistent with dental caries and poor oral hygiene. No evidence of ANUG, Checo's angina, RPA, LABOR RELATIONS OFFICER. Patient was controlling secretions he had no trismus. No indication for airway intervention at this time. I considered the following differential diagnosis: Dental abscess, ANUG, Ludewig's angina, RPA, LABOR RELATIONS OFFICER, dental caries, gingivitis Will give prophylactic antibiotics to begin antimicrobial effect (clindamycin 450 mg TID). Will give oral pain medicine here. Will give dental resources. Give strict return precautions and follow-up instructions Shared decision making: I will have a discussion with the patient and or visitors regarding risk/benefits of further testing or admission. They will be made aware of of the risk/benefits inherent in this decision they will be given the opportunity to voice understanding. Impression: 1. Dental caries 2. History of tobacco abuse Disposition: discharge home This note was generated with [employer] dictation software. It may contain incorrect words, spelling, and [id number] Discharge Plan Triage Chief Complaint: Dental ED Provider: Braeden Gallagher Dx/Rx/DC Orders Prescriptions: No Action (DME) blood pressure test kit-medium Kit See Rx Instructions .Route Qty: 1 0RF Rx Instructions: As directed Primary Care Provider: Stephanie White Referrals: Stephanie White MD [Primary Care Provider] - Print Language: Belarusian
[2024-05-04] MEDS: oxyCODONE 5 MG Tablet PO (22:39)
[2024-05-04] MEDS: Ibuprofen 200 MG Tablet 400 MG PO (22:40)
[2024-05-04] MEDS: Clindamycin HCl 150 MG Capsule 450 MG PO (22:40)
== END 2024-05-04 22:42 | disposition home or self-care (01) ==
PROVIDERS: Emergency Provider Emergency Medicine; PCP Internal Medicine; Visit Provider Emergency Medicine
DX: K02.9 Dental caries, unspecified (principal); K21.9 Gastro-esophageal reflux disease without esophagitis; F17.210 Nicotine dependence, cigarettes, uncomplicated
CPT/HCPCS: 99283

== ENCOUNTER 2024-07-03 13:12 | Emergency (ER) | payer OTHER, SELFPAY ==
[2024-07-03 13:13] VITALS: BP 136/87; PULSE 65; RESP 16; TEMP 36.3; O2SAT 100; BMI 22.8
--- NOTE | 2024-07-03 13:42 | EDS_ITS ---
HPI History of Present Illness Chief Complaint: Dental Informant: patient Onset/Context/Timing Onset: Days (3) Context: Gradual Onset Timing: Continuous Quality: Sharp Location: Left lower molar Worsened by: Nothing Relieved by: - (Nothing) Associated Symptoms Assocated Symptom - Dental: jaw swelling and face swelling; Negative for fever, cold sensitivity or hot sensitivity Narrative Narrative: Patient presents with dental pain that has been getting worse over the last 3 days. Patient states it is gradually getting worse. Patient describes his pain as sharp. Patient states it is over the left lower molar area. Patient states nothing makes it better nothing makes it worse. Patient states he noted some swelling of his lower jaw and face today. Patient denies any fevers or chills. Patient denies any hot or cold sensitivities. Patient states he has an appointment with Cristela lozano in 2 days. PFSH PFS Medical History Heart valve problem Diverticulitis Acute lymphadenitis of neck Acid reflux Nausea History of back problems Malaise and fatigue Weight loss Tobacco user Home Medications ?Medication ?Instructions ?Recorded ?Last Taken ?Type blood pressure test kit-medium #1 ea 08/01/23 Unknown Rx clindamycin HCl 300 mg capsule 300 mg PO Q6H #40 CAPSULES 07/03/24 Unknown Rx (Cleocin HCl) Allergy/AdvReac Type Severity Reaction Status Date / Time Penicillins (PCN) Allergy Unknown Verified 07/03/24 13:23 Family History Other No pertinent family history Surgical History H/O hand surgery Social History household members: none current occupational status: employed 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[employer] Smoking Status: Current every day smoker tobacco type: cigarettes Electronic Cigarette Use: not used quit status: considering quitting alcohol intake: current alcohol intake frequency: a few times a month substance use type: does not use and former substance user Date of last use: marijuana, used in 2018 do you feel safe at home: Yes ROS ROS ED Constitutional Constitutional ED: Denies chills or fever(s) Eyes Eyes: Denies blurry vision or change in vision ENT ENT ED: Denies rhinorrhea or sore throat Cardiovascular Cardiovascular: Denies chest pain or palpitations Respiratory/Chest Respiratory/Chest: Denies cough or dyspnea Gastrointestinal Gastrointestinal: Denies nausea or vomiting Genitourinary Genitourinary ED: Denies dysuria or hematuria Musculoskeletal Musculoskeletal: Denies back pain or neck pain Integumentary Denies abscess or rash Neurologic Neurologic: Denies headache(s) or weakness Allergic/Immunologic Allergic/Immunologic ED: Denies mouth swelling or urticaria EXAM Physical Exam Const Vital Signs: 07/03/24 13:13 Temperature 97.4 F L Temperature Source Temporal Pulse Rate 65 Respiratory Rate 16 Blood Pressure 136/87 H Blood Pressure Mean 103 Pulse Ox 100 Oxygen Delivery Method Room Air Positive well nourished and well developed General Appearance ED: well developed and NAD HEENT HEENT Narrative: There are multiple dental caries noted. There is some gingival edema over the left lower molar. There is no fluctuance. There is no active discharge or drainage noted. Oropharynx is clear. Airway is patent. Neck is supple. Trachea is midline. There is no JVD or lymphadenopathy noted. There is no sublingual edema or evidence of Checo's angina. Mouth ED: Yes oral and palatal mucosa normal, Yes lips normal and Yes tongue normal Mouth: oral and palatal mucosa normal, lips normal and tongue normal Teeth and Gingiva: caries and gingiva abnormal Positive for gingival edema Throat: posterior oropharynx normal Neck supple and no JVD General: normal visual inspection; Negative for anterior neck swelling, tenderness or submandibular swelling Neuro oriented x3, CN's II-XII intact bilaterally, moves all extremities, no focal motor deficits and no sensory deficits noted Sensorium / Orientation: alert Motor Exam: strength 5/5 throughout Psych mental status grossly normal MDM MDM MDM Narrative Medical decision making narrative: Smoking cessation was discussed. Patient was advised that there is most likely a dental infection. Patient was given a dose of clindamycin here. Patient was given a prescription for clindamycin. Patient was instructed to follow-up with his dentist in 2 days as previously scheduled. Patient was instructed to continue Tylenol and ibuprofen as needed for pain. Patient was instructed to return if worse in any way. Patient understood and was agreeable with the plan. All questions were answered. Discharge Plan Triage Chief Complaint: Dental ED Provider: Gustavo Bran Dx/Rx/DC Orders Clinical Impression: Infected dental caries, Tobacco user Instructions: ED Dental Pain, ED Dental Cavity Prescriptions: New clindamycin HCl [Cleocin HCl] 300 mg capsule 300 mg PO Q6H Qty: 40 0RF Discontinued clindamycin HCl 300 mg capsule 300 mg PO TID Qty: 21 0RF No Action (DME) blood pressure test kit-medium Kit See Rx Instructions .Route Qty: 1 0RF Rx Instructions: As directed Stand Alone Forms: ED Work / School Excuse Primary Care Provider: Stephanie White Referrals: Stephanie White MD [Primary Care Provider] - 5-7 Days Dentist,Your [STAFF PHYSICIAN] - Keep Imer appointment Print Language: Australian Disposition Disposition: Home, Self Care
[2024-07-03] MEDS: Clindamycin HCl 150 MG Capsule 300 MG PO (13:54)
== END 2024-07-03 13:56 | disposition home or self-care (01) ==
LOC: ED 13:50
PROVIDERS: Emergency Provider Emergency Medicine; PCP Internal Medicine; Visit Provider Emergency Medicine
DX: K04.7 Periapical abscess without sinus (principal); F17.210 Nicotine dependence, cigarettes, uncomplicated; K02.9 Dental caries, unspecified
CPT/HCPCS: 99282

== ENCOUNTER 2024-12-05 10:17 | Emergency (ER) | payer OTHER, SELFPAY ==
[2024-12-05 10:18] VITALS: BP 141/110; PULSE 112; RESP 16; TEMP 36.4; O2SAT 98; BMI 23.5
--- NOTE | 2024-12-05 12:07 | RAD_ITS ---
EXAM: XR Right Hip With Pelvis When Performed, 2 or 3 Views CLINICAL INDICATION: TECHNIQUE: Two or three views of the right hip with pelvis when performed. COMPARISON: No relevant prior studies available. FINDINGS: BONES/JOINTS: Unremarkable. No acute fracture. No dislocation. SOFT TISSUES: Unremarkable. RAD/HIP, UNI W/ Pelvis 2-3 Views IMPRESSION: No acute fracture. [facility]
--- NOTE | 2024-12-05 12:07 | RAD_ITS ---
EXAM: XR Lumbosacral Spine, 2 or 3 Views CLINICAL INDICATION: TECHNIQUE: Frontal and lateral views of the lumbar spine and sacrum. COMPARISON: No relevant prior studies available. FINDINGS: VERTEBRAE: Unremarkable. No acute fracture. Normal alignment. SACRUM/COCCYX: Unremarkable as visualized. No acute fracture. DISC SPACES: No acute findings. No significant narrowing. SOFT TISSUES: Unremarkable. RAD/Lumbar Spine 2 or 3 Views IMPRESSION: No acute fracture. Reading Location: [facility]
[2024-12-05] MEDS: morphine 8 MG/ML Syringe 6 MG IM (12:13)
[2024-12-05] MEDS: Ibuprofen 600 MG Tablet PO (12:13)
--- NOTE | 2024-12-05 12:34 | EDS_ITS ---
HPI History of Present Illness Chief Complaint: Back Informant: patient Narrative Narrative: Patient is a 41-year-old male denies any significant past medical history presenting for evaluation of right-sided back pain and leg pain after fall this morning. He was get ready for work early this morning when he slipped and fell on the ice. He initially thought maybe he pulled a muscle in his right back as the days gone on his increased pain as well as pain rating to his right groin and down his right leg. He was at work and is work told him he should come to be evaluated. He is not on any blood thinners. Did have 400 mg of Advil at 4:30 AM. Denies associate numbness or tingling. Does not take any medications on a regular basis. No other complaints or concerns reported at this time. Denies any bowel or bladder incontinence. Denies any other injuries from his fall today. PFSH PFSH Medical History Heart valve problem Diverticulitis Acute lymphadenitis of neck Acid reflux Nausea History of back problems Malaise and fatigue Weight loss Tobacco user Home Medications ?Medication ?Instructions ?Recorded ?Last Taken ?Type blood pressure test kit-medium #1 ea 08/01/23 Unknown Rx hydrocodone-acetaminophen 5-325mg 1 tab PO Q8H PRN Lola n 3 days #10 12/05/24 Unknown Rx 5mg-325mg TABLETS ibuprofen 600 mg tablet 600 mg PO Q6H PRN PRN pain # 20 12/05/24 Unknown Rx TABLETS Allergy/AdvReac Type Severity Reaction Status Date / Time Penicillins (PCN) Allergy Unknown Verified 12/05/24 10:20 Family History Other No pertinent family history Surgical History H/O hand surgery Social History household members: none current occupational status: employed 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[employer] Smoking 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: Current every day smoker tobacco type: cigarettes Electronic Cigarette Use: not used quit status: considering quitting alcohol intake: current alcohol intake frequency: a few times a month substance use type: does not use and former substance user Date of last use: marijuana, used in 2018 do you feel safe at home: Yes ROS ROS ED Constitutional Constitutional ED: Denies chills or fever(s) ENT ENT ED: Denies sore throat Cardiovascular Cardiovascular: Denies chest pain Respiratory/Chest Respiratory/Chest: Denies dyspnea Gastrointestinal Gastrointestinal: Denies nausea or vomiting Musculoskeletal Musculoskeletal: Reports back pain and other Details: right groin pain, right leg pain Integumentary Denies Abrasions or rash Neurologic Neurologic: Denies paresthesias or weakness Hematologic/Lymphatic Hematologic/Lymphatic: Denies easy bleeding or easy bruising EXAM Physical Exam Const Vital Signs: 12/05/24 10:18 Temperature 97.5 F L Temperature Source Temporal Pulse Rate 112 H Respiratory Rate 16 Blood Pressure 141/110 H Blood Pressure Mean 120 Pulse Ox 98 Oxygen Delivery Method Room Air Positive well nourished and well developed Constitutional Narrative: Uncomfortable appearing General Appearance ED: well developed and NAD HEENT Reports moist mucous membranes Neck supple Neck Narrative: No midline tenderness, normal range of motion Resp normal respiratory effort and clear to auscultation bilaterally Cardio regular rate and regular rhythm GI normal to inspection, nondistended, normoactive bowel sounds and soft to palpation GI Narrative: No peritoneal findings, no distention. Soft and nontender Back/Spine Back/Spine Narrative: No pinpoint midline thoracic or lumbar tenderness but he is diffusely tender in the upper lumbar region as well as the right paraspinal lumbar region. No step- off sign appreciated. Decreased range of motion of the back secondary to pain. Does not tolerate straight leg test bilaterally because of pain in his back. Extremity Extremity Narrative: No deformity of the lower extremities. Mild pain with range of motion of the right hip. Pelvis is stable. 2+ bilateral DP pulses. Neuro oriented x3 and no sensory deficits noted Neuro Narrative: 5/5 strength with plantar and dorsiflexion of the legs. Sensorium / Orientation: alert Psych mental status grossly normal Skin no rashes or lesions noted and no wounds MDM MDM MDM Narrative Medical decision making narrative: Patient evaluated for worsening right low back pain after mechanical fall of slipping on ice early this morning. Did have 400 mg of ibuprofen around 4:30 AM. Vital signs upon arrival significant for mild tachycardia and elevated blood pressure. I suspect this more of a pain reaction. Patient is not tachycardic upon my evaluation via auscultation. Differential includes muscle spasm, lumbar fracture, pelvic fracture, hip fracture, hip contusion. He is given a dose of IM morphine and 600 mg ibuprofen with improvement of his pain and range of motion. X-rays of the hip as well as lumbar spine reviewed by myself as well as radiology not show any acute traumatic injury. Patient be given a work note for both of his jobs for today and tomorrow and given a [place] derm patch to the emergency room. Will be discharged home with a prescription for Motrin 600 mg and a short course of [place] for pain control. Encouraged follow-up with his primary care doctor. Is given return precautions such as increased pain, difficulty walking or new neurologic symptoms. He verbalized agreement understands plan. Did discuss using heat to his back suspect this is associated muscle spasm. Radiography Diagnostic Testing: Clinical Impression(s) from Imaging Studies Hip/Pelvis X-Ray 12/05/24 12:07 IMPRESSION: No acute fracture. Reading Location: [facility] Lumbar Spine X-Ray 12/05/24 12:07 IMPRESSION: No acute fracture. Reading Location: [facility] Discharge Plan Triage Chief Complaint: Back ED Provider: China Chery Dx/Rx/DC Orders Clinical Impression: Fall due to ice or snow, Acute right-sided back pain Instructions: ED Back Sprain/Strain Prescriptions: New ibuprofen 600 mg tablet 600 mg PO Q6H PRN PRN (Reason: pain) Qty: 20 0RF hydrocodone-acetaminophen 5-325 mg tablet 1 tab PO Q8H PRN (Reason: Pain) 3 Days Qty: 10 0RF No Action (DME) blood pressure test kit-medium Kit See Rx Instructions .Route Qty: 1 0RF Rx Instructions: As directed Stand Alone Forms: ED Work / School Excuse, Work / School Excuse Primary Care Provider: Stephanie White Referrals: Stephanie White MD [Primary Care Provider] - Activity Restrictions/Additional Instructions: Apply moist heat to your back as suspect you have associated muscle spasm from your fall this morning. There not appear to be any bony fracture or injury. Please follow-up with your primary care doctor especially not improving. As we discussed the pain medication (hydrocodone) can cause constipation you might need take a stool softener or MiraLAX with it. If develop any new numbness, worsening pain or incontinence please return to the emergency room. Print Language: Finnish Disposition Disposition: Home, Self Care
[2024-12-05] MEDS: Lidocaine 5% Patch 1 PATCH TOPICAL (13:16)
== END 2024-12-05 13:36 | disposition home or self-care (01) ==
PROVIDERS: Emergency Provider Emergency Medicine; PCP Internal Medicine; Visit Provider Emergency Medicine
DX: R10.31 Right lower quadrant pain (principal); F17.210 Nicotine dependence, cigarettes, uncomplicated; M79.604 Pain in right leg; M54.9 Dorsalgia, unspecified; K21.9 Gastro-esophageal reflux disease without esophagitis; R10.2 Pelvic and perineal pain; W00.1XXA Fall from stairs and steps due to ice and snow, initial encounter
CPT/HCPCS: 72100; 73502; 96372; 99282

== ENCOUNTER → 2025-06-12 | Outpatient (CLI) | payer SELFPAY ==
--- NOTE | 2025-06-12 11:20 | RAD_ITS ---
PROCEDURE: ELBOW MIN 3 VIEWS 06/12/2025 REASON FOR EXAM: R/O FX/PAIN/SPRAIN R ELBOW work injury yesterday. TECHNIQUE: ELBOW MIN 3 VIEWS Laterality: Right COMPARISON: None. FINDINGS: BONES: No acute fracture or focal osseous lesion. JOINTS: No dislocation. The joint spaces are normal. No evidence of elbow joint effusion. SOFT TISSUES: The soft tissues are unremarkable. RAD/Elbow min 3 Views IMPRESSION: No acute osseous abnormality. Reading Location: [id number]
== END | disposition home or self-care (01) ==
LOC: RAD 11:13
PROVIDERS: PCP Internal Medicine; Referring Provider Nurse Practitioner Family; Visit Provider Nurse Practitioner Family
DX: S53.401A Unspecified sprain of right elbow, initial encounter (principal); X58.XXXA Exposure to other specified factors, initial encounter
CPT/HCPCS: 73080

== ENCOUNTER 2025-09-05 13:50 | Emergency (ER) | payer SELFPAY ==
[2025-09-05 13:51] VITALS: BP 144/84; PULSE 71; RESP 18; TEMP 36.9; O2SAT 100; BMI 22.6
--- NOTE | 2025-09-05 14:55 | ED.RN ---
Pt states he is leaving, ambulated out of department
== END 2025-09-05 14:55 | disposition left against medical advice (07) ==
LOC: ED 14:57
PROVIDERS: PCP Internal Medicine
DX: Z53.21 Procedure and treatment not carried out due to patient leaving prior to being seen by health care provider (principal)

== ENCOUNTER 2025-09-07 10:29 | Emergency (ER) | payer BC, SELFPAY ==
[2025-09-07 10:30] VITALS: BP 130/84; PULSE 70; RESP 18; TEMP 37; O2SAT 100; BMI 23.0
[2025-09-07 11:41] VITALS: BP 160/58; PULSE 82; RESP 16; O2SAT 99
[2025-09-07] MEDS: Lidocaine 1% (20 ml mdv) 20 ML Vial INFILT (11:54)
[2025-09-07] MEDS: HYDROcodone Bitartrate/Apap 5/325 Tablet PO (11:55)
[2025-09-07 13:00] VITALS: BP 115/80; PULSE 72; RESP 14; O2SAT 96
--- NOTE | 2025-09-07 14:30 | EX.ED.DYSGE1 ---
HPI History of Present Illness Chief Complaint: Cellulitis Informant: patient Narrative Narrative: Patient is a 50-year-old male with no significant PMHx presenting with a facial infection. - Noticed swelling on the side of his face on , which he suspects started as an ingrown hair. - Denies any intraoral issues, stating, I don't have any teeth. - Reports that the swelling has become indurated and painful, extending up his face. - Visited urgent care on Monday and was prescribed antibiotics. - Noticed minimal drainage this morning. - Denies history of DM or other medical issues. PFSH PFSH Medical History Heart valve problem Diverticulitis Acute lymphadenitis of neck Acid reflux Nausea History of back problems Malaise and fatigue Weight loss Tobacco user Home Medications ?Medication ?Instructions ?Recorded ?Last Taken ?Type blood pressure test kit-medium #1 ea 08/01/23 Unknown Rx cephalexin 500 mg capsule 500 mg PO TID 09/07/25 Unknown History doxycycline monohydrate 100 mg 100 mg PO BID 09/07/25 Unknown History tablet hydrocodone-acetaminophen 5-325mg 1 tab PO Q6H PRN PRN Pain 3 days 09/07/25 Unknown Rx 5mg-325mg #6 TABLETS Allergy/AdvReac Type Severity Reaction Status Date / Time Penicillins (PCN) Allergy Unknown Verified 09/07/25 10:30 Family History Other No pertinent family history Surgical History H/O hand surgery Social History household members: none current occupational status: employed 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[employer] Smoking Status: Current every day smoker tobacco type: cigarettes Electronic Cigarette Use: not used quit status: considering quitting alcohol intake: current alcohol intake frequency: a few times a month substance use type: does not use and former substance user Date of last use: marijuana, used in 2019 do you feel safe at home: Yes ROS ROS ED Constitutional Constitutional ED: Denies chills or fever(s) ENT ENT ED: Reports as per HPI and facial pain; Denies epistaxis, mouth pain or nasal discharge Musculoskeletal Musculoskeletal: Denies back pain or neck pain Integumentary Reports abscess; Denies rash EXAM Physical Exam Const Vital Signs: 09/07/25 10:30 09/07/25 11:41 09/07/25 13:00 Temperature 98.6 F Temperature Source Oral Pulse Rate 70 82 72 Respiratory Rate 18 16 14 Blood Pressure 130/84 H 160/58 H 115/80 Blood Pressure Mean 99 92 91 Pulse Ox 100 99 96 Oxygen Delivery Method Room Air Room Air Positive well nourished and well developed General Appearance ED: well developed and NAD HEENT Reports moist mucous membranes HEENT Narrative: 2 cm facial abscess left lower face not involving vermilion border appears to start within the patient's [place] possibly due to ingrown hair unclear no spontaneous discharge expressible right now. Fluctuant tender erythematous Eyes PERRL and EOMs intact bilaterally Neck no lymphadenopathy and supple Resp normal respiratory effort MDM MDM MDM Narrative Medical decision making narrative: Assessment: The patient is a 50-year-old male presenting for a painful, indurated swelling along the left lower face present for four days after presumed ingrown hair. Exam reveals fluctuant area consistent with abscess. Given focal purulence expressed at bedside, cutaneous abscess of face is the definitive diagnosis; current cephalexin and doxycycline provide adequate MRSA coverage. Plan: - Performed simple incision and drainage of left facial abscess under local anesthesia; cavity deloculated, irrigated with saline, bacitracin dressing applied. - Continue cephalexin and doxycycline as outpatient. - Provided procedure consent and post-I&D wound care instructions. Procedures Other Procedures Procedure(s): simple abscess incision and drainage left face: Informed written consent obtained. The area was prepped locally with isopropanol and chlorhexidine, then anesthetized with 1% lidocaine. An incision was made along the skin lines with a #11 blade, creating a small opening. A small amount of material and a necrotic plug were expressed. The cavity was deloculated and irrigated with saline. The procedure was well tolerated with no complications. Care was taken to avoid entry into the oral mucosa or oral cavity. The incision site was dressed with bacitracin. Discharge Plan Triage Chief Complaint: Cellulitis Other Complaint: Wound Check ED Provider: Hood Lozada Dx/Rx/DC Orders Clinical Impression: Cutaneous abscess of face Instructions: ED Abscess Incision And Drainage Prescriptions: New hydrocodone-acetaminophen 5-325 mg tablet 1 tab PO Q6H PRN PRN (Reason: Pain) 3 Days Qty: 6 0RF Continued (DME) blood pressure test kit-medium Kit See Rx Instructions .Route Qty: 1 0RF Rx Instructions: As directed doxycycline monohydrate 100 mg tablet 100 mg PO BID cephalexin 500 mg capsule 500 mg PO TID Primary Care Provider: Stephanie White Referrals: Jorge Vora MD [Med Staff - Active Staff, Plastic Surgery] - 3-5 Days if not improving Print Language: Danish Disposition Disposition: Home, Self Care
[2025-09-07 14:40] VITALS: BP 118/65; PULSE 62; RESP 14; TEMP 37.1; O2SAT 100
== END 2025-09-07 14:42 | disposition home or self-care (01) ==
PROVIDERS: Emergency Provider Emergency Medicine; PCP Internal Medicine; Visit Provider Emergency Medicine
DX: L02.01 Cutaneous abscess of face (principal); F17.210 Nicotine dependence, cigarettes, uncomplicated; K21.9 Gastro-esophageal reflux disease without esophagitis
CPT/HCPCS: 10060; 99282

== ENCOUNTER 2025-10-08 19:12 | Emergency (ER) | payer BC, SELFPAY ==
[2025-10-08 19:13] VITALS: BP 123/95; PULSE 90; RESP 16; TEMP 36.6; O2SAT 99; BMI 22.8
--- NOTE | 2025-10-08 19:31 | RAD_ITS ---
PROCEDURE: ELBOW MIN 3 VIEWS 10/08/2025 REASON FOR EXAM: INJURY TECHNIQUE: Procedure Code: RADEL Modality: DX Procedure: ELBOW MIN 3 VIEWS Laterality: Right FINDINGS: No acute fracture or dislocations. No large joint effusion. No acute soft tissue abnormalities. No radiographic foreign body. RAD/Elbow min 3 Views IMPRESSION: No acute fracture or dislocations. Reading Location: [id number]
--- OUTSIDE RECORDS SUMMARY | 2025-10-08 21:41 | XMS RPT_ITS | CCD ---
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 Brown Primary Care Provider [phone] [employer]at [employer] TRIMMER-C Linda Attending Provider Musat [employer] INSPECT[employer] TRIMMER-C, Linda Referring Provider BERNARDO PHAM Attending Unavailable Hood Lozada Attending Unavailable Stephanie White Primary Care Unavailable China Chery Attending Unavailable Stephanie White Primary Care Unavailable Provider, Ed Physician Attending UnavailStephanie Allen Primary Care Unavailable Musat Linda Referring Unavailable Lindsey Linda Attending Unavailable Stephanie White Primary Care Unavailable Allergies Allergy Classification Reported Allergen(s) Allergy Type Date of Onset Reaction(s) Facility (4 sources) Penicillins; Translations: [PENICILLINS] Drug Allergy 09-26-2022 Rash [facility] (2 sources) Penicillins Allergy to substance 02-20-2024 Unknown [facility] (1 source) Penicillin; Translations: [penicillin] Drug Allergy [facility] (1 source) Penicillins Drug allergy (disorder) 09-07-2025 [facility] Repository Medications Current Medications Medication Drug Class(es) Dates Sig (Normalized) Sig (Original) acetaminophen 325 mg / HYDROcodone bitartrate 5 mg oral tablet (5 sources) Opioid Agonist Start: 12-05-2024 take 1 tablet by mouth every eight hours as needed for pain Hydrocodone-Acetam inophen 5-325 mg tablet Active 1 {tbl} PO Q8H as needed for Pain 10 3 0 December 05, 2024 Acute right-sided back pain Dorsalgia, unspecified Start: 02-20-2024 End: 05-04-2024 Hydrocodone-Acetaminophen 5- 325 mg tablet Discontinued 1 {tbl} PO EVERY 6 HOURS NEEDED as needed for Pain 10 3 0 February 20, 2024 May 04, 2024 10:28pm Dental abscess Dental caries extending into pulp Periapical abscess without sinus Dental caries, unspecified Start: 02-20-2024 take 1 tablet by lucila th every six hours as needed Hydrocodone-Acetaminophen Active 1 TABLE T PO EVERY 6 HOURS NEEDED 10 3 February 20, 2024 Start: 11-09-2013 End: 12-01-2013 Hydrocodone-Acetaminophen 1 TABLET tablet Discontinued 1 - 2 {tbl} PO EVERY 4 HOURS NEEDED as needed for Pain 20 0 November 09, 2013 1:00am December 01, 2013 2:27pm Start: 11-09-2013 End: 12-01-2013 take 1 tablet by mouth every four hours as needed Hydrocodone-Acetaminophen Discontinued 1 - 2 TABLET PO EVERY 4 HOURS NEEDED November 09, 2013 1:00am December 01, 2013 2:27pm Blood Pressure Test Kit-Medium (1 source) Start: 08-01-2023 Blood Pressure Test Kit-Medium Active 0 .Route August 01, 2023 12:00am As directed Blood Pressure Test Kit-Medium kit (1 source) Start: 08-01-2023 Blood Pressure Test Kit-Medium kit Active 0 .Route 1 August 01, 2023 12:00am Elevated blood pressure reading Elevated blood-pressure reading, without diagnosis of hypertension As directed ibuprofen 600 mg oral tablet (4 sources) Nonsteroidal Anti-inflammatory Drug Start: 12-05-2024 take 1 tablet by mouth every six hours as needed for pain Ibuprofen 600 mg tablet Active 600 mg PO EVERY 6 HOURS NEEDED as needed for pain 20 0 December 05, 2024 1:00am Start: 02-20-2024 End: 05-04-2024 take 1 tablet by mouth every eight hours as needed for pain Ibuprofen 600 mg tablet Discontinued 600 mg PO EVERY 8 HOURS NEEDED as needed for pain 15 0 February 20, 2024 12:00am May 04, 2024 10:28pm ibuprofen (MOTRI N ORAL) Take by mouth. Active Completed/Discontinued Medications Medication Drug Class(es) Dates Sig (Normalized) Sig (Original) azithromycin 250 mg oral tablet (2 sources) Macrolide Antimicrobial Start: 02-20-2024 End: 05-04-2024 take 1 tablet by mouth once daily Azithromycin 250 mg tablet Discontinued 250 mg PO DAILY 4 0 February 20, 2024 12:00am May 04, 2024 10:28pm cephalexin 500 mg oral capsule (2 sources) Cephalosporin Antibacterial Start: 04-18-2021 End: 06-05-2023 take 1 capsule by mouth every six hours Cephalexin 500 mg capsule Discontinued 500 mg PO EVERY 6 HOURS 28 7 0 April 18, 2021 12:00am June 05, 2023 8:56am ciprofloxacin 500 mg oral tablet (4 sources) Quinolone Antimicrobial Start: 04-24-2020 End: 05-19-2020 take 1 tablet by mouth twice daily Ciprofloxacin Hcl 500 mg tablet Discontinued 500 mg PO TWICE A DAY 28 14 0 May 05, 2020 12:00am May 18, 2020 12:00am May 19, 2020 12:02am clindamycin 300 mg oral capsule (3 sources) Lincosamide Antibacterial Start: 07-03-2024 End: 12-05-2024 take 1 capsule by mouth every six hours Clindamycin Hcl (Cleocin Hcl) 300 mg capsule Discontinued 300 mg PO EVERY 6 HOURS 40 0 July 03, 2024 12:00am December 05, 2024 12:01pm Start: 05-04-2024 End: 07-03-2024 take 1 capsule by mouth three times daily Clindamycin Hcl 300 mg capsule Discontinued 300 mg PO THREE TIMES A DAY 21 0 May 04, 2024 12:00am July 03, 2024 1:47pm Start: 03-17-2024 End: 03-27-2024 clindamycin 300 mg oral caps ule Dose : 300 mg = 1 cap(s), Oral, q8h, X 10 day(s), # 30 cap(s), 0 Refill(s), 03/27/24 3:58:00 PM EDT, 57 Start Date: 03/17/24 Stop Date: 03/27/24 Status: Ordered famotidine 40 mg oral tablet (2 sources) Histamine-2 Receptor Antagonist Start: 06-05-2023 End: 08-01-2023 take 1 tablet by mouth once daily Famotidine (Pepcid) 40 mg tablet Discontinued 40 mg PO DAILY 14 0 June 05, 2023 12:00am August 01, 2023 3:01pm metroNIDAZOLE 500 mg oral tablet (4 sources) Nitroimidazole Antimicrobial Start: 05-05-2020 End: 05-19-2020 take 1 tablet by mouth three times daily Metronidazole 500 mg tablet Discontinued 500 mg PO THREE TIMES A DAY 42 14 May 05, 2020 12:00am May 18, 2020 12:00am May 19, 2020 12:02am Start: 04-24-2020 End: 05-05-2020 take 1 tablet by mouth every eight hours Metronidazole 500 MG tablet Discontinued 500 mg PO Q8H April 24, 2020 12:00am May 05, 2020 2:14pm 24 hr nicotine 0.875 mg/hr transdermal system (4 sources) Cholinergic Nicotinic Agonist Start: 08-01-2023 End: 02-20-2024 apply 1 dose transdermal route every twenty-four hours Nicotine 21 mg/24 hr patch 24 hour Discontinued 1 NMA TD DAILY 28 August 01, 2023 12:00am February 20, 2024 5:03pm Start: 08-01-2023 End: 02-20-2024 Nicotine (Polacrilex) 2 mg l ozenge Discontinued 2 mg BUCCAL Q4H as needed for nicotine cravings 108 0 August 01, 2023 12:00am February 20, 2024 5:03pm Start: 08-01-2023 End: 02-20-2024 apply 1 dose transdermal route once daily Nicotine Discontinued 1 PATCH TD DAILY August 01, 2023 12:00am February 20, 2024 5:03pm ondansetron 4 mg disintegrating oral tablet (2 sources) Serotonin-3 Receptor Antagonist Start: 04-24-2020 End: 05-05-2020 take 1 tablet by mouth every eight hours as needed for nausea Ondansetron 4 MG tablet Discontinued 4 mg PO EVERY 8 HOURS NEEDED as needed for Nausea April 24, 2020 12:00am May 05, 2020 2:35pm sulfamethoxazole 800 mg / trimethoprim 160 mg oral tablet (2 sources) Dihydrofolate Reductase Inhibitor Antibacterial, Sulfonamide Antimicrobial Start: 11-02-2013 End: 12-01-2013 Sulfamethoxazole- Trimethoprim 1 TABLET tablet Discontinued 1 {tbl} PO TWICE A DAY 10 November 02, 2013 1:00am December 01, 2013 2:27pm Start: 11-02-2013 End: 12-01-2013 take 1 tablet by mouth twice daily Sulfamethoxazole-Trimethoprim Discontinu ed 1 TABLET PO TWICE A DAY November 02, 2013 1:00am December 01, 2013 2:27pm Problems Active Problems Problem Classification Problem Date Documented Da te Episodic/Chronic Disorders of teeth and jaw (2 sources) Gingivitis; Translations: [Chronic gingivitis, plaque induced] 02-20-2024 Chronic Disorders of teeth and jaw (8 sources) Periodontal disease; Translations: [Periodontal disease, unspecified] Onset: 03-17-2024 02-20-2024 Episodic E Codes: Fall (1 source) Unspecified fall due to ice and snow, initial encounter; Translations: [Fall due to slipping on ice or snow] 12-13-2024 Episodic Influenza (1 source) Influenza-like illness; Translations: [Influenza due to unidentified influenza virus with other respiratory manifestations] Episodic Lymphadenitis (2 sources) Acute lymphadenitis of neck; Translations: [Acute lymphadenitis of face, head and neck] 08-01-2023 Episodic Nausea and vomiting (2 sources) Nausea, vomiting and diarrhea; Translations: [Nausea with vomiting, unspecified] 05-27-2020 Episodic Noninfectious gastroenteritis (2 sources) Colitis; Translations: [Noninfective gastroenteritis and colitis, unspecified] 04-25-2020 Episodic Nonspecific chest pain (2 sources) Tight chest; Translations: [Other chest pain] 06-13-2023 Episodic Other gastrointestinal disorders (1 source) Aphagia; Translations: [Aphagia] Episodic Other gastrointestinal disorders (2 sources) Swallowing painful; Translations: [Dysphagia, unspecified] 06-17-2022 Episodic Other gastrointestinal disorders (2 sources) Diarrhea; Translations: [Diarrhea, unspecified] 04-25-2020 Episodic Other injuries and conditions due to external causes (1 source) Injury of right foot; Translations: [Unspecified injury of right foot, initial encounter] 05-08-2023 Episodic Other lower respiratory disease (2 sources) Dyspnea; Translations: [Dyspnea, unspecified] 06-13-2023 Episodic Residual codes; unclassified (2 sources) Tobacco use and exposure - finding; Translations: [Tobacco use] 06-13-2023 Episodic Residual codes; unclassified (2 sources) Tobacco user; Translations: [Tobacco use] 05-05-2020 Episodic Skin and subcutaneous tissue infections (2 sources) Cutaneous abscess of face; Translations: [Facial abscess] Onset: 09-04-2025 Episodic Sprains and strains (1 source) Unspecified sprain of right elbow, initial encounter; Translations: [Unspecified sprain of right elbow, initial encounter] Onset: 06-19-2025 Episodic Substance-related disorders (2 sources) History of drug abuse; Translations: [Other psychoactive substance abuse, in remission] 08-01-2023 Chronic Superficial injury; contusion (2 sources) Contusion of neck; Translations: [Contusion of unspecified part of neck, initial encounter] 06-17-2022 Episodic Past or Other Problems Problem Classification Problem Date Documented Da te Episodic/Chronic Spondylosis; intervertebral disc disorders; other back problems (2 sources) Backache; Translations: [Dorsalgia, unspecified] Onset: 12-05-2024 12-13-2024 Episodic Results Test Name Value Interpretation Reference Range Facil ity Emergency Department Summary on 09-07-2025 Emergency Department Summary [facility] Medical Records Department [address] [place] [address] Emergency Department Summary 09/07/25 MR#: [id number] Acct: [id number] Name: JAYNE DRIVER Rep #: [id number] : 1975 50 From: Hood Lozada MD PCP: Dr. Stephanie White MD Status:REG ER Location: ED HPI History of Present Illness Chief Complaint: Cellulitis Informant: patient Narrative Narrative: Patient is a 50-year-old male with no significant PMHx presenting with a facial infection. - Noticed swelling on the side of his face on , which he suspects started as an ingrown hair. - Denies any intraoral issues, stating, I don't have any teeth. - Reports that the swelling has become indurated and painful, extending up his face. - Visited urgent care on Monday and was prescribed antibiotics. - Noticed minimal drainage this morning. - Denies history of DM or other medical issues. PFSH PFSH Medical History Heart valve problem Diverticulitis Acute lymphadenitis of neck Acid reflux Nausea History of back problems Malaise and fatigue Weight loss Tobacco user Home Medications ???Medication ???Instructions ???Recorded ???Last Taken ???Type blood pressure test kit-medium #1 ea 08/01/23 Unknown Rx cephalexin 500 mg capsule 500 mg PO TID 09/07/25 Unknown His tory doxycycline monohydrate 100 mg 100 mg PO BID 09/07/25 Unknown His tory tablet hydrocodone-acetamino phen 5-325mg 1 tab PO Q6H PRN PRN Pain 3 days 09/07/25 Unknown Rx 5mg-325mg #6 TABLETS Allergy/AdvReac Type Severity Reaction Status Date / Time Penicillins (PCN) Allergy Unknown Verified 09/07/25 10:30 Family History Other No pertinent family history Surgical History H/O hand surgery Social History household members: none current occupational status: employed 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[employer] Smoking Status: Current every day smoker tobacco type: cigarettes Electronic Cigarette Use: not used quit status: considering quitting alcohol intake: current alcohol intake frequency: a few times a month substance use type: does not use and former substance user Date of last use: marijuana, used in 2018 do you feel safe at home: Yes ROS ROS ED Constitutional Constitutional ED: Denies chills or fever(s) ENT ENT ED: Reports as per HPI and facial pain; Denies epistaxis, mouth pain or nasal discharge Musculoskeletal Musculoskeletal: Denies back pain or neck pain Integumentary Reports abscess; Denies rash EXAM Physical Exam Const Vital Signs: 09/07/25 10:30 09/07/25 11:41 09/07/25 13:00 Temperature 98.6 F Temperature Source Oral Pulse Rate 70 82 72 Respiratory Rate 18 16 14 Blood Pressure 130/84 H 160/58 H 115/80 Blood Pressure Mean 99 92 91 Pulse Ox 100 99 96 Oxygen Delivery Method Room Air Room Air Positive well nourished and well developed General Appearance ED: well developed and NAD HEENT Reports moist mucous membranes HEENT Narrative: 2 cm facial abscess left lower face not involving vermilion border appears to start within the patient's arrington possibly due to ingrown hair unclear no spontaneous discharge expressible right now. Fluctuant tender erythematous Eyes PERRL and EOMs intact bilaterally Neck no lymphadenopathy and supple Resp normal respiratory effort MDM MDM MDM Narrative Medical decision making narrative: Assessment: The patient is a 50-year-old male presenting for a painful, indurated swelling along the left lower face present for four days after presumed ingrown hair. Exam reveals fluctuant area consistent with abscess. Given focal purulence expressed at bedside, cutaneous abscess of face is the definitive diagnosis; current cephalexin and doxycycline provide adequate MRSA coverage. Plan: - Performed simple incision and drainage of left facial abscess under local anesthesia; cavity deloculated, irrigated with saline, bacitracin dressing applied. - Continue cephalexin and doxycycline as outpatient. - Provided procedure consent and post-I D wound care instructions. Procedures Other Procedures Procedure(s): simple abscess incision and drainage left face: Informed written consent obtained. The area was prepped locally with isopropanol and chlorhexidine, then anesthetized with 1% lidocaine. An incision was made along the skin lines with a #11 blade, creating a small opening. A small amount of material and a necrotic plug were expressed. The cavity was deloculated and irrigated with saline. The procedure was well tolerated with no complications. Care was taken to avoid entry into the o (more content not included)... Normal [facility] CNOVon 09-04-2025 OV Office Visit ([facility]) JAYNE DRIVER ([id number]) 1975 M Date Time Provider Department 09/04/25 10:00 AM BERNARDO PHAM During your visit today, we recorded the following information about you: Temperature Pulse Respiration Blood pressure 98 degrees 72/minute 20/minute 147/88 Weight 62 kg Bernardo Pham APRN.CNP 09/04/2025 11:44 AM Signed [facility] Subjective HPI HPI Jayne Driver is a 50 year old male who presents today for CC of facial infection. This started 1 day ago. Has tried nothing for relief. Symptoms are worsened by nothing. Does not have teeth/no gum pain. Denies fever. .Patient presents with: Facial Swelling: Left side bottom jaw swelling, painful, redness, pain into face, and neck x 1 day increased over night No past medical history on file. No past surgical history on file. ALLERGIES Penicillins MEDICATIONS cephALEXin (KEFLEX) 500 mg capsule Take 1 capsule by mouth three times a day for 7 days. doxycycline monohydrate 100 mg tablet Take 1 tablet by mouth two times a day for 7 days. ibuprofen (MOTRIN ORAL) Take by mouth. No family history on file. SOCIAL HISTORY[1] Review of Systems Objective BP 147/88 Pulse 72 Temp 36.7 ?C (98 ?F) Resp 20 Wt 62 kg (136 lb 11 oz) SpO2 98% Physical Exam Constitutional: General: He is not in acute distress. Appearance: He is not toxic-appearing or diaphoretic. HENT: Head: Normocephalic and atraumatic. Mouth/Throat: Lips: [place]. Mouth: Mucous membranes are moist. Dentition: No gum lesions. Pulmonary: Effort: Pulmonary effort is normal. No accessory muscle usage or respiratory distress. Lymphadenopathy: Cervical: No cervical adenopathy. Right cervical: No superficial cervical adenopathy. Left cervical: No superficial cervical adenopathy. Neurological: Mental Status: He is alert and oriented to person, place, and time. {ASSESSMENT/PLAN: 1. Facial abscess - ICD9: 682.0, ICD10: L02.01 - Begin treatment with doxy/cephalexin - No lymphangetic streaking, this was defined for patient to watch for and to seek medical care immediately if appears - Follow up for recheck in three days if s/s persist Urgent f/u for worsening s/s - CEPHALEXIN 500 MG CAPSULE - DOXYCYCLINE MONOHYDRATE 100 MG TABLET Bernardo Pham APRN.BLOCK PILER History and Record Review External record(s) reviewed: prior outpatient record. Differential Diagnoses - facial infection Disposition The patient was discharged. Procedures [1] Social History Tobacco Use Smoking status: Every Day Types: Cigarettes Passive exposure: Current Smokeless tobacco: Never Substance Use Topics Alcohol use: Never Drug use: Never Allergies As of Date: 09/04/2025 Noted Allergy Reaction PENICILLINS 09/26/2022 2 - Rash Date Reviewed: 09/04/2025 Reviewed by: Jeaneth Lake LPN - Fully Assessed Reason for Visit: Facial Swelling [1292] Cmt: Left side bottom jaw swelling, painful, redness, pain into face, and neck x 1 day increased over night Primary Visit Diagnosis:Facial abscess [L02.01] Order(s):cephALEXin (KEFLEX) 500 mg capsuleTake 1 capsule by mouth three times a day for 7 days.Disp: 21 capsuleRfl: 0 doxycycline monohydrate 100 mg tabletTake 1 tablet by mouth two times a day for 7 days.Disp: 14 tabletRfl: 0 Prescriptions as of 09/04/2025 - cephALEXin (KEFLEX) 500 mg capsule Take 1 capsule by mouth three times a day for 7 days. - doxycycline monohydrate 100 mg tablet Take 1 tablet by mouth two times a day for 7 days. - ibuprofen (MOTRIN ORAL) Take by mouth. Problem List As Of Date: 09/04/2025 (None) Prescriptions ordered this encounter Disp Refills Start End CEPHALEXIN 500 MG CAPSULE 21 c* 0 09/04/2025 09/11/2025 Route: PO Sig: Take 1 capsule by mouth three times a day for 7 days. DOXYCYCLINE MONOHYDRATE 100 MG TABLET 14 t* 0 09/04/2025 09/11/2025 Cmt: May transfer to [facility] if less expensive. Route: PO Sig: Take 1 tablet by mouth two times a day for 7 days. Letter Text Encounter Status:Closed by BERNARDO PHAM on 09/04/25 Normal [facility] Elbow min 3 Viewson 06-12-20 Elbow min 3 Views [facility] Imaging Services [address] [place] [address] Elbow min 3 Views MR#: [id number] Acct: [id number] Name: JAYNE DRIVER Rep #: [id number] : 1975 M 50 From: Ivett Hogan MD PCP: Dr. Stephanie White MD Status: REG CLI Study: Elbow min 3 Views Date of Exam: 06/12/25 Exam# [id number] Ordering Dr: Linda Portillo PROCEDURE: ELBOW MIN 3 VIEWS 06/12/2025 REASON FOR EXAM: R/O FX/PAIN/SPRAIN R ELBOW work injury yesterday. TECHNIQUE: ELBOW MIN 3 VIEWS Laterality: Right COMPARISON: None. FINDINGS: BONES: No acute fracture or focal osseous lesion. JOINTS: No dislocation. The joint spaces are normal. No evidence of elbow joint effusion. SOFT TISSUES: The soft tissues are unremarkable. RAD/Elbow min 3 Views IMPRESSION: No acute osseous abnormality. Reading Location: [id number] CC: PADDED PRODUCTS INSPECTOR TRIMMER-Catherine Portillo; Dr. Stephanie White MD Irrigation Engineer: Signed Normal [facility] Emergency Department Summary on 12-05-2024 Emergency Department Summary [facility] Medical Records Department [address] [place] [address] Emergency Department Summary 12/05/24 MR#: [id number] Acct: [id number] Name: JAYNE DRIVER Rep #: [id number] : 1975 49 From: China Chery DO PCP: Dr. Stephanie White MD Status:DEP ER Location: ED HPI History of Present Illness Chief Complaint: Back Informant: patient Narrative Narrative: Patient is a 41-year-old male denies any significant past medical history presenting for evaluation of right-sided back pain and leg pain after fall this morning. He was get ready for work early this morning when he slipped and fell on the ice. He initially thought maybe he pulled a muscle in his right back as the days gone on his increased pain as well as pain rating to his right groin and down his right leg. He was at work and is work told him he should come to be evaluated. He is not on any blood thinners. Did have 400 mg of Advil at 4:30 AM. Denies associate numbness or tingling. Does not take any medications on a regular basis. No other complaints or concerns reported at this time. Denies any bowel or bladder incontinence. Denies any other injuries from his fall today. PFSH PFSH Medical History Heart valve problem Diverticulitis Acute lymphadenitis of neck Acid reflux Nausea History of back problems Malaise and fatigue Weight loss Tobacco user Home Medications ???Medication ???Instructions ???Recorded ???Last Taken ???Type blood pressure test kit-medium #1 ea 08/01/23 Unknown Rx hydrocodone-acetamino phen 5-325mg 1 tab PO Q8H PRN Pain 3 days #10 12/05/24 Unknown Rx 5mg-325mg TABLETS ibuprofen 600 mg tablet 600 mg PO Q6H PRN PRN pain #20 04/23 Unknown Rx TABLETS Allergy/AdvReac Type Severity Reaction Status Date / Time Penicillins (PCN) Allergy Unknown Verified 12/05/24 10:20 Family History Other No pertinent family history Surgical History H/O hand surgery Social History household members: none current occupational status: employed 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[employer] Smoking Status: Current every day smoker tobacco type: cigarettes Electronic Cigarette Use: not used quit status: considering quitting alcohol intake: current alcohol intake frequency: a few times a month substance use type: does not use and former substance user Date of last use: marijuana, used in 2018 do you feel safe at home: Yes ROS ROS ED Constitutional Constitutional ED: Denies chills or fever(s) ENT ENT ED: Denies sore throat Cardiovascular Cardiovascular: Denies chest pain Respiratory/Chest Respiratory/Chest: Denies dyspnea Gastrointestinal Gastrointestinal: Denies nausea or vomiting Musculoskeletal Musculoskeletal: Reports back pain and other Details: right groin pain, right leg pain Integumentary Denies Abrasions or rash Neurologic Neurologic: Denies paresthesias or weakness Hematologic/Lymphatic Hematologic/Lymphatic : Denies easy bleeding or easy bruising EXAM Physical Exam Const Vital Signs: 12/05/24 10:18 Temperature 97.5 F L Temperature Source Temporal Pulse Rate 112 H Respiratory Rate 16 Blood Pressure 141/110 H Blood Pressure Mean 120 Pulse Ox 98 Oxygen Delivery Method Room Air Positive well nourished and well developed Constitutional Narrative: Uncomfortable appearing General Appearance ED: well developed and NAD HEENT Reports moist mucous membranes Neck supple Neck Narrative: No midline tenderness, normal range of motion Resp normal respiratory effort and clear to auscultation bilaterally Cardio regular rate and regular rhythm GI normal to inspection, nondistended, normoactive bowel sounds and soft to palpation GI Narrative: No peritoneal findings, no distention. Soft and nontender Back/Spine Back/Spine Narrative: No pinpoint midline thoracic or lumbar tenderness but he is diffusely tender in the upper lumbar region as well as the right paraspinal lumbar region. No step-off sign appreciated. Decreased range of motion of the back secondary to pain. Does not tolerate straight leg test bilaterally because of pain in his back. Extremity Extremity Narrative: No deformity of the lower extremities. Mild pain with range of motion of the right hip. Pelvis is stable. 2+ bilateral DP pulses. Neuro oriented x3 and no sensory deficits noted Neuro Narrative: 5/5 strength with plantar and dorsiflexion of the legs. Sensorium / Orientation: alert Psych mental status grossly normal Skin no rashes or lesions noted and no wounds MDM MDM MDM Narrative Medical decision making na (more content not included)... Normal [facility] HIP, UNI W/ Pelvis 2-3 Views on 12-05-2024 HIP, UNI W/ Pelvis 2-3 Views [facility] Imaging Services [address] [place] [address] HIP, UNI W/ Pelvis 2-3 Views MR#: [id number] Acct: [id number] Name: JAYNE DRIVER Rep #: [id number] : 1975 M 49 From: Trevon Bach MD PCP: Dr. Stephanie White MD Status: REG ER Study: HIP, UNI W/ Pelvis 2-3 Views Date of Exam: 04/23 Exam# [id number] Ordering Dr: China Chery DO EXAM: XR Right Hip With Pelvis When Performed, 2 or 3 Views CLINICAL INDICATION: TECHNIQUE: Two or three views of the right hip with pelvis when performed. COMPARISON: No relevant prior studies available. FINDINGS: BONES/JOINTS: Unremarkable. No acute fracture. No dislocation. SOFT TISSUES: Unremarkable. RAD/HIP, UNI W/ Pelvis 2-3 Views IMPRESSION: No acute fracture. Reading Location: [facility] CC: Dr. Stephanie White MD; Dr. China Chery DO Irrigation Engineer: Signed Normal [facility] Lumbar Spine 2 or 3 Viewson 12-05-2024 Lumbar Spine 2 or 3 Views [facility] Imaging Services [address] [place] [address] Lumbar Spine 2 or 3 Views MR#: [id number] Acct: [id number] Name: JAYNE DRIVER Rep #: [id number] : 1975 M 49 From: Trevon Bach MD PCP: Dr. Stephanie White MD Status: REG ER Study: Lumbar Spine 2 or 3 Views Date of Exam: Exam# [id number] Ordering Dr: China Chery DO EXAM: XR Lumbosacral Spine, 2 or 3 Views CLINICAL INDICATION: TECHNIQUE: Frontal and lateral views of the lumbar spine and sacrum. COMPARISON: No relevant prior studies available. FINDINGS: VERTEBRAE: Unremarkable. No acute fracture. Normal alignment. SACRUM/COCCYX: Unremarkable as visualized. No acute fracture. DISC SPACES: No acute findings. No significant narrowing. SOFT TISSUES: Unremarkable. RAD/Lumbar Spine 2 or 3 Views IMPRESSION: No acute fracture. Reading Location: [facility] CC: Dr. Stephanie White MD; Dr. China Chery DO Irrigation Engineer: Signed Normal [facility] XR Foot - right AP and Later al and obliqueon 05-08-2023 IMPRESSION: No acute radiographic abnormalities seen in the right foot. Irrigation Engineer: PSCB Transcribe Date/Time: May 08 2023 8:27A Dictated by : FRANCOIS WOLFF MD This examination was interpreted and the report reviewed and electronically signed by: FRANCOIS WOLFF MD on May 08 2023 8:35AM [facility] DIVISION OF RADIOLOGY * * *Final Report* * * DATE OF EXAM: May 08 2023 8:25AM [id number] - XR FOOT 3V AP/LAT/OBL RT / PROCEDURE REASON: Foot injury, right, initial encounter * * * * Physician Interpretation * * * * EXAM TITLE: XR FOOT 3V AP/LAT/OBL RT EXAM DATE/TIME: 05/08/2023 8:25 AM COMPARISON: None CLINICAL INDICATION/HISTORY: Injury. TECHNIQUE: AP, lateral and oblique views of the right foot are presented. FINDINGS: No acute fractures or subluxations are noted. The joint spaces are well preserved. The mineralization of the bones is normal. There is no significant soft tissue swelling. DIVISION OF RADIOLOGY Provider, William [facility] - 05/08/2023 * * *Final Report* * * DATE OF EXAM: May 08 2023 8:25AM WOX [id number] - XR FOOT 3V AP/LAT/OBL RT / PROCEDURE REASON: Foot injury, right, initial encounter * * * * Physician Interpretation * * * * EXAM TITLE: XR FOOT 3V AP/LAT/OBL RT EXAM DATE/TIME: 05/08/2023 8:25 AM COMPARISON: None CLINICAL INDICATION/HISTORY: Injury. TECHNIQUE: AP, lateral and oblique views of the right foot are presented. FINDINGS: No acute fractures or subluxations are noted. The joint spaces are well preserved. The mineralization of the bones is normal. There is no significant soft tissue swelling. IMPRESSION IMPRESSION: No acute radiographic abnormalities seen in the right foot. Irrigation Engineer: PSCB Transcribe Date/Time: May 08 2023 8:27A Dictated by : FRANCOIS WOLFF MD This examination was interpreted and the report reviewed and electronically signed by: FRANCOIS WOLFF MD on May 08 2023 8:35AM EST [facility] Radiology Study observation (narrative) [facility] XR Foot - right AP and Later al and obliqueOrdered By: [facility] Provider on 05-08-2023 [facility] Vital Signs Date Time Vital Sign Value Performing Clinician Facility 03-17-2024 15:25-0400 Body temperature 99.5 [degF] [facility] DO [facility] 03-17-2024 15:25-0400 Diastolic Blood Pressure Non-Invasive 82 mm[Hg] [facility] DO [facility] 03-17-2024 15:25-0400 Heart rate 87 /min [facility] DO [facility] 03-17-2024 15:25-0400 Respiratory rate 18 /min [facility] 03-17-2024 15:25-0400 Systolic Blood Pressure Non-Invasive 122 mm[Hg] [facility] 02-20-2024 17:30-0400 Body temperature 98 [degF] [facility] 02-20-2024 17:30-0400 Diastolic blood pressure 93 mm[Hg] [facility] 02-20-2024 17:30-0400 Heart rate 90 /min [facility] 02-20-2024 17:30-0400 Respiratory rate 16 /min [facility] 02-20-2024 17:30-0400 SaO2% (BldA) [Mass fraction] 99 % [facility] 02-20-2024 17:30-0400 Systolic blood pressure 133 mm[Hg] [facility] 02-20-2024 16:39-0400 Body height 165.1 cm [facility] 02-20-2024 16:39-0400 Body mass index (BMI) [Ratio] 22.3 kg/m2 [facility] 02-20-2024 16:39-0400 Body weight 60.87 kg [facility] 09-26-2022 12:55-0500 Body temperature 98.91 [degF] Randall Grimes MD Work Phone: [facility] 09-26-2022 12:55-0500 Body weight 60.69 kg Randall Grimes MD Work Phone: [facility] 09-26-2022 12:55-0500 Diastolic blood pressure 76 mm[Hg] Randall Grimes MD Work Phone: [facility] 09-26-2022 12:55-0500 Heart rate 95 /min Randall Grimes MD Work Phone: [facility] 09-26-2022 12:55-0500 Respiratory rate 21 /min Randall Grimes MD Work Phone: [facility] 09-26-2022 12:55-0500 SaO2% (BldA) [Mass fraction] 99 % Randall Grimes MD Work Phone: [facility] 09-26-2022 12:55-0500 Systolic blood pressure 122 mm[Hg] Randall Grimes MD Work Phone: [facility] Encounters Encounter Date Encounter Type Care Provider Facility Start: 09-07-2025 End: 09-07-2025 Emergency department patient visit Hood Lozada Facility:[facility] Start: 09-05-2025 End: 09-05-2025 Emergency department patient visit Ed Physician Provider Facility:[facility] Start: 09-04-2025 End: 09-04-2025 ambulatory BERNARDO PHAM Facility:[facility] Start: 06-12-2025 End: 06-12-[address] Stephanie White MD Work Phone: -Radiology [facility] Start: 06-12-2025 End: 06-12-2025 Patient encounter procedure Linda Portillo PADDED PRODUCTS INSPECTOR TRIMMER-C -Radiology [facility] Work Phone: Start: 06-12-2025 End: 06-12-2025 ambulatory Linda Portillo Facility:[facility] Start: 12-05-2024 End: 12-05-2024 Emergency department patient visit China Chery Facility:[facility] Start: 03-17-2024 End: 03-17-2024 [facility] Start: 02-20-2024 End: 02-20-2024 Emergency department patient visit [facility]Emergency Department Work Phone: Start: 05-08-2023 End: 05-08-2023 Subsequent hospital visit by physician Xr [facility] Work Phone: Radiology Comment on above: Foot injury, right, initial encounter [S99.921A] Start: 09-27-2022 Telephone encounter Lena Porter HIDE EXAMINER.BLOCK PILER Work Phone: [facility] Comment on above: Results Start: 09-26-2022 End: 09-26-2022 Patient encounter procedure Randall Grimes MD Work Phone: [facility] Comment on above: Influenza-like illne ss (Primary Dx) Start: 06-09-2022 End: 06-09-2022 Patient encounter procedure Mercy Gaytan LAURA.BLOCK PILER Work Phone: [facility] Comment on above: Inability to swallow (Primary Dx) Procedures Date Procedure Procedure Detail Performing Clinician Start: 06-12-2025 Plain x-ray of elbow Dr Stefany White MD Work Phone: Start: 05-08-2023 Radex foot complete minimum 3 views Cary Etienne APRN.BLOCK PILER Work Phone: Plan of Treatment Date Care Activity Detail Author Start: 06-30-2024 Covid-19 Vaccine ( season) Covid-19 Vaccine ( season) [facility] Start: 06-30-2024 Influenza vaccination Influenza Vacc ine (#1) [facility] Start: 02-20-2024 [facility] Start: 09-26-2022 End: 10-10-2022 Influenza virus A and B RNA and SARS-CoV-2 (COVID-19) N gene panel - Respiratory specimen by ISIDRO with probe detection [facility] Work Phone: Comment on above: Expected: 09/26/2022 , Expires: 10/10/2022 Start: 06-30-2022 Influenza vaccination INFLUENZA (#1) [facility] Start: 10-30-2021 DEPRESSION ASSESSMENT DEPRESSION ASS ESSMENT [facility] Start: 2021 COLOGUARD (FIT-DNA) COLOGUARD (FIT-D NA) [facility] Start: 2021 Colonoscopy COLONOSCOPY [facility] Start: 2021 COLORECTAL CANCER SCREENING COLORECTAL CANCER SCREENING [facility] Start: [address] COLONOGRAPHY [facility] Start: 2021 DIABETES SCREEN DIABETES SCREEN [facility] Start: 2021 Diabetes Screening Diabetes Screenin g [facility] Start: 2021 FECAL OCCULT BLOOD FECAL OCCULT BLOO D [facility] Start: 2021 Screening for malign ant neoplasm of colon [facility] Start: 2021 SIGMOIDOSCOPY SIGMOIDOSCOPY [facility] Start: 2011 Lipid panel Lipid Screening [facility] Start: 2011 LIPID SCREEN LIPID SCREEN [facility] Start: 1995 Hepatitis B Vaccine (1 of 3 - 19+ 3-dose series) Hepatitis B Vaccine (1 of 3 - 19+ 3-dose series) [facility] Start: 1995 Urine microalbumin profile [facility] Start: 1994 Anxiety Screening Anxiety Screening [facility] Start: 1994 Depression Screening Depression Scre ening [facility] Start: 1994 HEPATITIS C SCREENING HEPATITIS C SC [facility] Start: 1994 Hepatitis C screening Hepatitis C [facility] Start: 1994 HIV SCREENING HIV SCREENING [facility] Start: 1994 HIV screening HIV Screening [facility] Start: 1988 Adult depression screening assessment DEPRESSION SCREENING [facility] Start: 1982 PNEUMOCOCCAL (1 - PCV) PNEUMOCOCCAL (1 - PCV) [facility] Start: 1982 Pneumococcal vaccination Pneum ococcal Vaccine (1 of 2 - PCV) [facility] Start: 1976 COVID-19 VACCINE (#1) COVID-19 VACCI NE (#1) [facility] Start: 1976 HEPATITIS B (1 of 3 - 3-dose series) HEPATITIS B (1 of 3 - 3-dose series) [facility] Patient Education ED Dental Abscess [facility] Work Phone: Patient referral [facility] Work Phone: Immunizations Immunization Date Immunization Notes Care Provider Gigi sofia 05-09-2014 pneumococcal polysaccharide vaccine, 23 valent [facility] 07-22-2013 Seasonal, quadrivale nt, recombinant, injectable influenza vaccine, preservative free [facility] 07-22-2013 tetanus toxoid, redu polina diphtheria toxoid, and acellular pertussis vaccine, adsorbed [facility] Payers Date Payer Category Payer Self-pay [id number] 2024 Unknown [id number] 2024 Unknown [id number] 2024 Medicaid [id number] 2024 Unknown [id number] 2021 Unknown ANDREY JAMA ACCE PPO [id number] 2021-Present [phone] [address] [place] [address] PPO [id number] 1975 Unknown [id number] Private Health Insurance [facility] [id number] Unknown [id number] Unknown [facility] [id number] Unknown [employer] D *DO NOT USE* [id number] Unknown [id number] Unknown [id number] Unknown [id number] Unknown [id number] Social History Date Type Detail Facility Start: 02-20-2024 Tobacco smoking stat [facility] Tobacco smoking consumption unknown [facility] Start: 1975 Sex Assigned At Not on file C [facility] Start: 09-26-2022 End: 12-05-2024 Tobacco smoking status NHIS Smokes tobacco daily [facility] History of tobacco use Cigarette Smoker C [facility] History of tobacco use Passive smoker [facility] Start: 09-26-2022 Tobacco use and exposure Smokeless tobacco non-user [facility] Start: 04-18-[address] [facility] Start: 04-24-[address] [facility] Start: 05-26-[address] [facility] Start: 1975 Sex Assigned At Male [facility] Start: 03-17-2024 Tobacco smoking status Heavy t obacco smoker (finding) [facility] Sex Assigned At Sex [facility] Start: 05-08-2023 Alcoholic beverage intake Lifetime non-drinker (finding) [facility] Start: 05-08-2023 History of Social function [facility] Start: 05-08-2023 Tobacco use panel [facility] Functional Status Date Assessment Result Facility 03-17-2024 Functional Status Standard Safet y ID band on, Call device within reach, Bed in low position, Wheels locked, Bedside Cart Locked, Safety level maintained [facility] Mental Status Date Assessment Result Facility 03-17-2024 Mental Status Orientation Oriented x 4 [facility] Clinical Notes 06-09-2022 to 09-04-2025 Note Date & Type Note Facility 09-04-2025 Note HNO ID: [id number] Author: BERNARDO PHAM APRN.BLOCK PILER Service: ? Author Type: Nurse Practitioner Type: Progress Notes Filed: 09/04/2025 11:44 Note Text: [facility] Subjective HPI HPI Jayne Driver is a 50 year old male who presents today for CC of facial infection. This started 1 day ago. Has tried nothing for relief. Symptoms are worsened by nothing. Does not have teeth/no gum pain. Denies fever. .Patient presents with: Facial Swelling: Left side bottom jaw swelling, painful, redness, pain into face, and neck x 1 day increased over night No past medical history on file. No past surgical history on file. ALLERGIES Penicillins MEDICATIONS cephALEXin (KEFLEX) 500 mg capsule Take 1 capsule by mouth three times a day for 7 days. doxycycline monohydrate 100 mg tablet Take 1 tablet by mouth two times a day for 7 days. ibuprofen (MOTRIN ORAL) Take by mouth. No family history on file. SOCIAL HISTORY[1] Review of Systems Objective BP 147/88 Pulse 72 Temp 36.7 ?C (98 ?F) Resp 20 Wt 62 kg (136 lb 11 oz) SpO2 98% Physical Exam Constitutional: General: He is not in acute distress. Appearance: He is not toxic-appearing or diaphoretic. HENT: Head: Normocephalic and atraumatic. Mouth/Throat: Lips: [place]. Mouth: Mucous membranes are moist. Dentition: No gum lesions. Pulmonary: Effort: Pulmonary effort is normal. No accessory muscle usage or respiratory distress. Lymphadenopathy: Cervical: No cervical adenopathy. Right cervical: No superficial cervical adenopathy. Left cervical: No superficial cervical adenopathy. Neurological: Mental Status: He is alert and oriented to person, place, and time. {ASSESSMENT/PLAN: 1. Facial abscess - ICD9: 682.0, ICD10: L02.01 - Begin treatment with doxy/cephalexin - No lymphangetic streaking, this was defined for patient to watch for and to seek medical care immediately if appears - Follow up for recheck in three days if s/s persist Urgent f/u for worsening s/s - CEPHALEXIN 500 MG CAPSULE - DOXYCYCLINE MONOHYDRATE 100 MG TABLET Bernardo Pham APRN.BLOCK PILER History and Record Review External record(s) reviewed: prior outpatient record. Differential Diagnoses - facial infection Disposition The patient was discharged. Procedures [1] Social History Tobacco Use Smoking status: Every Day Types: Cigarettes Passive exposure: Current Smokeless tobacco: Never Substance Use Topics Alcohol use: Never Drug use: Never [facility] 06-13-2025 Radiology Diagnostic study note [facility] Imaging Services [address] [place], [place] [id number] Elbow min 3 Views MR#: [id number] Acct: [id number] Name: JAYNE DRIVER Rep #: [id number] : 1975 M 50 From: Isis Hogan MD PCP: Dr. Stephanie White MD Status: REG CLI Study:Elbow min 3 Views Date of Exam: Exam# [id number] Ordering Dr: Blaire Portillo saC PROCEDURE: ELBOW MIN 3 VIEWS 06/12/2025 REASON FOR EXAM: R/O FX/PAIN/SPRAIN R ELBOW work injury yesterday. TECHNIQUE: ELBOW MIN 3 VIEWS Laterality: Right COMPARISON: None. FINDINGS: BONES: No acute fracture or focal osseous lesion. JOINTS: No dislocation. The joint spaces are normal. No evidence of elbow joint effusion. SOFT TISSUES: The soft tissues are unremarkable. RAD/Elbow min 3 Views IMPRESSION: No acute osseous abnormality. Reading Location: [id number] CC: PADDED PRODUCTS INSPECTOR TRIMMER-Catherine Portillo; Dr. Stephanie White MD ~ Irrigation Engineer: Signed [facility] 03-17-2024 Hospital Discharge instructions Patient Education 03/17/2024 16:02:43 Dental Pain Dental Pain A crack or cavity in a tooth can cause tooth pain. This is because the crack or cavity exposes the sensitive inner area of the tooth. An infection in the gum or the root of the tooth can cause pain and swelling. The pain is often made worse when you drink hot or cold beverages. It can also be worse when you bite on hard foods. Pain may spread from the tooth to your ear or the area of the jaw on the same side. Home care Follow these tips when caring for yourself at home: Don't have hot and cold foods and drinks. Your tooth may be sensitive to changes in temperature. Use toothpaste made for sensitive teeth. [place] gently up and down instead of sideways. Brushing sideways can wear away root surfaces if they are exposed. If your tooth is chipped or cracked, or if there is a large open cavity, put oil of cloves directly on the tooth to relieve pain. You can buy oil of cloves at drugstores. Some pharmacies carry an otht-ooq-wqhmvqk toothache kit. This contains a paste that you can put on the exposed tooth to make it less sensitive. Put a cold pack on your jaw over the sore area to help reduce pain. You may use urgn-ljy-braswyh medicine to ease pain, unless your doctor prescribed another medicine. If you have chronic liver or kidney disease, talk with your healthcare provider before using acetaminophen or ibuprofen. Also talk with your provider if you ve had a stomach ulcer or GI bleeding. If you have signs of an infection, you will be given an antibiotic. Take it as directed. Follow-up care Follow up with your dentist, or as advised. Your pain may go away with the treatment given today. But only a dentist can fully look at and treat the cause of your pain. This will keep the pain from coming back. Call 911 Call 911 if any of these occur: Unusual drowsiness Headache or stiff neck Weakness or fainting Difficulty swallowing or breathing When to seek medical advice Call your health care provider right away if any of these occur: Your face becomes swollen or red Pain gets worse or spreads to your neck Fever of 100.4 F (38.0 C) or higher, or as directed by your healthcare provider Pus drains from the tooth [phone] The [employer]. [address] [place] [address]. All rights reserved. This information is not intended as a substitute for professional medical care. Always follow your healthcare professional's instructions. Follow Up Care 03/17/2024 15:21:51 With:Dental Referral List Address: When:2-4 days With:Go to emergency room if symptoms worsen Address:Unknown When:2-4 days With:ANJEL MARTE MD Address: [address] [place] [id number] When:2-4 days [facility] 03-17-2024 Emergency department Discharge summary Discharge Instructions Thank you for allowing [facility] to assist you with your healthcare needs. The following is important discharge information regarding your hospital visit. Diagnosis from Today's Visit Dental caries What to Do Next Instructions from Your Care Team No qualifying data available. Post Acute Orders No qualifying data available. You Need to Schedule the Following Appointments Follow Up with Dental Referral List When: When:Within 2-4 days Follow Up with Go to emergency room if symptoms worsen When: When:Within 2-4 days Follow Up with ANJEL MARTE MD When: When:Within 2-4 days Where:[address] [place] [address] [id number]- Allergies penicillin Medications Please ask your primary doctor or pharmacist before taking any other medication not listed, including over the counter drugs, herbal medications, vitamins and or supplements as they may interact with your home medications. What How Much When Instructions Last Dose New clindamycin (clindamycin 300 mg oral capsule) 1 cap by mouth Every 8 hours Duration: 10 Days Printed Prescription Please take this list to your next doctor s visit. Bring all medications you take, including over the counter medications, herbals and other supplements with you to your doctor s visit. Patients and families are reminded to discard old lists and to update any records with all medication providers or retail pharmacies. Education Materials Dental Pain A crack or cavity in a tooth can cause tooth pain. This is because the crack or cavity exposes the sensitive inner area of the tooth. An infection in the gum or the root of the tooth can cause pain and swelling. The pain is often made worse when you drink hot or cold beverages. It can also be worse when you bite on hard foods. Pain may spread from the tooth to your ear or the area of the jaw on the same side. Home care Follow these tips when caring for yourself at home: Don't have hot and cold foods and drinks. Your tooth may be sensitive to changes in temperature. Use toothpaste made for sensitive teeth. [place] gently up and down instead of sideways. Brushing sideways can wear away root surfaces if they are exposed. If your tooth is chipped or cracked, or if there is a large open cavity, put oil of cloves directly on the tooth to relieve pain. You can buy oil of cloves at drugstores. Some pharmacies carry an bitt-vhe-oduxfsv toothache kit. This contains a paste that you can put on the exposed tooth to make it less sensitive. Put a cold pack on your jaw over the sore area to help reduce pain. You may use hyze-fky-xcawsbt medicine to ease pain, unless your doctor prescribed another medicine. If you have chronic liver or kidney disease, talk with your healthcare provider before using acetaminophen or ibuprofen. Also talk with your provider if you ve had a stomach ulcer or GI bleeding. If you have signs of an infection, you will be given an antibiotic. Take it as directed. Follow-up care Follow up with your dentist, or as advised. Your pain may go away with the treatment given today. But only a dentist can fully look at and treat the cause of your pain. This will keep the pain from coming back. Call 911 Call 911 if any of these occur: Unusual drowsiness Headache or stiff neck Weakness or fainting Difficulty swallowing or breathing When to seek medical advice Call your health care provider right away if any of these occur: Your face becomes swollen or red Pain gets worse or spreads to your neck Fever of 100.4 F (38.0 C) or higher, or as directed by your healthcare provider Pus drains from the tooth [id number] The [employer]. [address] [place] [address]. All rights reserved. This information is not intended as a substitute for professional medical care. Always follow your healthcare professional's instructions. Additional Information VACCINATE! IT SAVES LIVES! Members of the community who have not yet received the COVID-19 vaccine and would like to receive it can visit one of [facility] vaccine clinics. There are many vaccine clinic locations within the [facility]. For locations and available times, please visit [email or web address] [email or web address] It is important to note that some COVID mobile vaccine clinics are held outdoors and may be canceled in rainy or stormy conditions. To learn more about pediatric vaccinations (ages 5-11), we invite you to visit the [facility] webpage. https://www.[email or web address].org/p ages/3101-Mzyuj-Cvolpyqancm-Freq kdhfik-Ieuxo-Qpkdncqti.html To learn more about the COVID-19 vaccine, we invite you to visit the CDC website for a list of frequently asked questions. https://www.cdc.gov/coronavirus/ 2019-ncov/vaccines/faq.html [facility] Patient Portal Access Instructions: Stay connected with your healthcare team and access your personal medical information anytime with the [facility] Patient Portal. If you would like a full copy of your medical records please contact the [facility] Medical Records Department Monday through Monday between 8a.m. and 4:30p.m. Please follow the directions below to access the portal: 1.Access the email account you provided upon registration to the [facility].2.Look for an invitation email from [facility].3.Open the email and access the invitation link: Accept Invitation to [facility].Fill in the required echols to create your account. Sign into [email or web address] with your username and password that you created in the above steps to stay up to date. You can then view a summary of results, a summary of your visits, and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
== END 2025-10-08 21:24 | disposition left against medical advice (07) ==
LOC: ED 21:39
PROVIDERS: PCP Internal Medicine
DX: Z53.21 Procedure and treatment not carried out due to patient leaving prior to being seen by health care provider (principal)
CPT/HCPCS: 73080